=== PATIENT | female | born 1980 | race Caucasian/White ===

== ENCOUNTER 2022-11-29 08:46 | Inpatient (IN) ==
[2022-11-29 10:53] LABS: Pregnancy Test, Serum Negative (Negative)
--- NOTE | 2022-11-29 12:04 | Ultrasound Report ---
ULTRASOUND RIGHT UPPER QUADRANT ABDOMEN CLINICAL HISTORY: Jaundice. COMPARISON STUDY: Abdominal CT dated 01/31/2018. TECHNIQUE: Real-time, grayscale, and color flow sonography of the right upper quadrant of the abdomen was performed. Images are reviewed in the transverse and longitudinal planes. FINDINGS: Liver: The liver is normal in size and echotexture. There is no intrahepatic biliary ductal dilatatio n. The main portal vein is patent. Gallbladder: The gallbladder is mildly distended and contains calcified gallstones. The gallbladder w all appears thickened in the region of the gallbladder neck. There is trace pericholecystic fluid. A sonographic Jean's sign is reportedly absent. The common bile duct measures up to 0.3 cm in diamete r. Pancreas: Visualized portions of the pancreatic head and body are normal in appearance. Right kidney: Survey images of the right kidney demonstrate normal size and echotexture. There is no hydronephrosis. Ascites: None. There are prominent periaortic lymph nodes. IMPRESSION: 1. Cholelithiasis within an abnormal appearing gallbladder. There is also trace pericholecystic fluid . Mild acute cholecystitis is not excluded. Clinical and laboratory correlation will be essential. A nuclear hepatobiliary scan could be considered for further evaluation. 2. There is no intra or extrahepatic biliary ductal dilatation. 3. Prominent periaortic lymph nodes are nonspecific and may be reactive. ACT 112: Negative or not required by law. Electronically signed by: Amor Cali M.D. 11/29/2022 12:03 PM
[2022-11-29 13:28] LABS: Basophils # (auto) 0.07 K/uL (0.00-0.20); Basophils % (auto) 0.7 %; Hematocrit (blood only) 37.7 % (37.0-47.0); Hemoglobin 12.9 g/dl (12.0-16.0); Immature Granulocytes # (auto) 0.04 K/uL (0.01-0.20); Immature Granulocytes % (auto) 0.4 %; Lymphocytes # (auto) 1.28 K/uL (1.20-3.40); Lymphocytes % (auto) 13.5 %; Mean Corpuscular Hemoglobin 28.2 pg (25.0-34.0); Mean Corpuscular Hgb Conc 34.2 g/dL (32.0-36.0); Mean Corpuscular Volume 82.5 fL (80.0-100.0); Mean Platelet Volume 12.8 fL (9.4-12.4); Monocytes # (auto) 0.81 K/uL (0.11-0.59); Monocytes % (auto) 8.6 %; Neutrophils # (auto) 7.26 K/uL (1.40-6.50); Neutrophils % (auto) 76.8 %; Platelet Count 297 K/uL (130-400); RDW Coefficient of Variation 18.3 % (11.5-14.5); RDW Standard Deviation 53.8 fL (36.4-46.3); Red Blood Count 4.57 M/uL (4.20-5.40); White Blood Count 9.46 K/ul (4.8-10.8)
[2022-11-29 14:04] LABS: Albumin Globulin Ratio 1.6 (0.9-2); Albumin Level 3.8 gm/dl (3.4-5.0); BUN Creatinine Ratio 10.4 (10-20); Bilirubin,Total 16.2 mg/dl (0.2-1.0); Calcium 8.8 mg/dl (8.6-10.3); Est GFR (African American) 127.4 ml/min; Globulin 2.4 gm/dl (2.5-4.0); Potassium 3.8 mmol/L (3.5-5.1); Total Protein 6.2 gm/dl (6.0-8.3)
[2022-11-29] MEDS ORDERED: cefOXitin 2,000 MG/60 ML BAG IV STA (14:44)
[2022-11-29] MEDS ORDERED: ONDANSETRON INJ 2 MG/ML 2 ML VIAL IV PRN (15:00)
--- NOTE | 2022-11-29 15:35 | History & Physical Report ---
Date of Service November 29, 2022 Assessment & Plan (1) Acute viral hepatitis: (2) Acute cholecystitis: (3) Opioid abuse: Plan Admit to hospital Vitals as protocol Activity as tolerated Diet npo Unclear of etiology, Patient has underlying hep c and will get a hepatitis profile . she had followup earlier this year and was not offered any treatment because of low hep c titres. No tylenol or any other hepatotoxic medication iv fluids at 100 ml /hr NS. Gi consult requested MRCP ordered held lithium for now ordered an echo to rule out endocarditis although appears unlikely as there is no fevers or wbc counts Surgery consult since US showed concerns of acute cholecystitis zofran prn for nausea continue mefoxin for empiric antibioitic coverage for now History of Present Illness Chief Complaint: generalised weakness , fatigue over the past week with increasing yellow discoloration over the past week Primary Care Provider: Shahzad Melgar DO 42 yr old female with history of substance use disorder , h/o bipolar disorder on lithium presented with worsening weakness and fatigue over the past week.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 Her weakness got worse over the next few days and she noticed increased yellowish discoloration over the past few days . She went to see her doctor today for evaluation and was transferred to the er because of jaundice. Patient had initial workup done and showed increased bilurubin and markedly elevated liver functions. She has history of ivdu and was states that she last used iv drugs about 6 months back She takes subutex but not every day. She is on lithium but unfortunately is not able to take it over the past few days because of nausea and vomiting. She denies using excessive tylenols or any other substances. She also feels feverish although when checked today she was a 36.7 Allergies Allergy/AdvReac Type Severity Reaction Status Date / Time pollen extracts Allergy Unknown "SEASONAL Verified 11/29/22 10:44 ALLERGIES" lactose AdvReac Mild GETS Verified 11/29/22 10:44 DIARRHEA Home Medications Medication Instructions Recorded Confirmed Type buprenorphine HCl 8 mg sublingual 0 mg sublingual TID 01/30/18 11/29/22 History tablet lithium carbonate 300 mg 300 mg PO BID 11/29/22 11/29/22 History tablet,extended release Past Med/Surg History Medical History (Updated 11/29/22 @ 15:26 by Krishan Morelos MD) Abscess of multiple sites BV (bacterial vaginosis) Fever Hordeolum of left eye Surgical History No pertinent past surgical history Social History Smoking Status: Current every day smoker Tobacco Type: Cigarettes Second Hand Exposure: No; Do You Dip or Chew Tobacco: No; Hx Alcohol Use: Yes Alcohol type: beer and wine Hx Substance Use: Yes Last Used Substance Other:: at least six months Preferred Language: Salvadorean Communication Ability: Effective Crop Duster Required: No Beliefs That Will Affect Care: Congregation Current Living Situation: Family and Significant Other Feels Safe at Home: Yes Assistive Devices: None Review of Systems Review of Systems: Reviewed all systems as noted in H/P , rest reviewed as negative Physical Exam Physical Exam: HEENT:No JVD , Normocephalic , atraumatic CV: S1/S2+ , no murmurs Resp: Air entry present bilaterally.no crackles, no wheeze . GI: Abdomen soft non tender . Musculoskeletal: examined for joint tenderness. Skin: Jaundiced+ Psych: Normal affect Neuro: Patient is awake alert not in distress , No focal neuro deficits noted Ext: no edema. Results & Data Results & Data Vital Signs (Past 12 Hours) Vital Signs Temp Pulse Resp BP Pulse Ox O2 Del Method 11/29/22 08:50 36.7 C 91 H 16 120/71 100 Room Air Laboratory Results 11/29/22 11/29/22 11/29/22 13:00 13:00 10:24 WBC 9.46 RBC 4.57 Hgb 12.9 Hct 37.7 MCV 82.5 MCH 28.2 MCHC 34.2 RDW Std Deviation 53.8 H RDW Coeff of Myra 18.3 H Plt Count 297 MPV 12.8 H Immature Gran % (Auto) 0.4 Neut % (Auto) 76.8 Lymph % (Auto) 13.5 Wilkinson % (Auto) 8.6 Eos % (Auto) 0.0 Baso % (Auto) 0.7 Neut # (Auto) 7.26 H Lymph # (Auto) 1.28 Wilkinson # (Auto) 0.81 H Eos # (Auto) 0.00 Baso # (Auto) 0.07 Immature Gran # (Auto) 0.04 Absolute Nucleated RBC Nucleated RBC % (auto) Neutrophils % (Manual) Band Neutrophils % Lymphocytes % (Manual) Prolymphocyte % Reactive Lymphs % (Man) Monocytes % (Manual) Eosinophils % (Manual) Basophils % (Manual) Metamyelocytes % (Man) Myelocytes % (Man) Promyelocytes % (Man) Blast Cells % (Manual) Plasma Cell % (Manual) Other Cells % Nucleated RBC % Neutrophils # (Manual) Band Neutrophils # Total Absolute Neuts Lymphocytes # (Manual) Prolymphocyte # Reactive Lymphs # Total Abs Lymphocytes Monocytes # (Manual) Eosinophils # (Manual) Basophils # (Manual) Metamyelocytes # (Man) Myelocytes # (Manual) Promyelocytes # (Man) Blast Cells # (Man) Plasma Cell # (Manual) Other Cells # Nucleated RBCs # (Man) Hypersegmented Neuts Hyposegmented Neuts Hypogranular Neuts Large Granular Lymphs # Lrg Granular Lymphs Hairy Cells Smudge Cells Toxic Granulation Toxic Vacuolation Dohle Bodies Sahkila Rods Platelet Estimate Hypogranular Platelets Giant Platelets Platelet Satelliting RBC Morphology Polychromasia Hypochromasia Poikilocytosis Basophilic Stippling Anisocytosis Microcytosis Macrocytosis Spherocytes Pappenheimer Bodies Sickle Cells Target Cells Tear Drop Cells Ovalocytes Stomatocytes [place] Bodies Echinocytes Acanthocytes (Spur) Rouleaux RBC Agglutinates Schistocytes Sezary Cell Sodium 138 Potassium 3.8 Chloride 104 Carbon Dioxide 23 Anion Gap 11 BUN 7 Creatinine 0.67 Est Cr Clr Drug Dosing 92.0 Est GFR ( Amer) 127.4 Est GFR (Non-Af Amer) 110.0 BUN/Creatinine Ratio 10.4 Glucose 75 Calcium 8.8 Total Bilirubin 16.2 H AST 1603 H ALT 1476 H Alkaline Phosphatase 499 H Total Protein 6.2 Albumin 3.8 Globulin 2.4 L Albumin/Globulin Ratio 1.6 Lipase 16 HCG, Qual Negative Blood Parasites ID 11/29/22 11/29/22 10:24 10:24 WBC Cancelled RBC Cancelled Hgb Cancelled Hct Cancelled MCV Cancelled MCH Cancelled MCHC Cancelled RDW Std Deviation Cancelled RDW Coeff of Myra Cancelled Plt Count Cancelled MPV Cancelled Immature Gran % (Auto) Cancelled Neut % (Auto) Cancelled Lymph % (Auto) Cancelled Wilkinson % (Auto) Cancelled Eos % (Auto) Cancelled Baso % (Auto) Cancelled Neut # (Auto) Cancelled Lymph # (Auto) Cancelled Wilkinson # (Auto) Cancelled Eos # (Auto) Cancelled Baso # (Auto) Cancelled Immature Gran # (Auto) Cancelled Absolute Nucleated RBC Cancelled Nucleated RBC % (auto) Cancelled Neutrophils % (Manual) Cancelled Band Neutrophils % Cancelled Lymphocytes % (Manual) Cancelled Prolymphocyte % Cancelled Reactive Lymphs % (Man) Cancelled Monocytes % (Manual) Cancelled Eosinophils % (Manual) Cancelled Basophils % (Manual) Cancelled Metamyelocytes % (Man) Cancelled Myelocytes % (Man) Cancelled Promyelocytes % (Man) Cancelled Blast Cells % (Manual) Cancelled Plasma Cell % (Manual) Cancelled Other Cells % Cancelled Nucleated RBC % Cancelled Neutrophils # (Manual) Cancelled Band Neutrophils # Cancelled Total Absolute Neuts Cancelled Lymphocytes # (Manual) Cancelled Prolymphocyte # Cancelled Reactive Lymphs # Cancelled Total Abs Lymphocytes Cancelled Monocytes # (Manual) Cancelled Eosinophils # (Manual) Cancelled Basophils # (Manual) Cancelled Metamyelocytes # (Man) Cancelled Myelocytes # (Manual) Cancelled Promyelocytes # (Man) Cancelled Blast Cells # (Man) Cancelled Plasma Cell # (Manual) Cancelled Other Cells # Cancelled Nucleated RBCs # (Man) Cancelled Hypersegmented Neuts Cancelled Hyposegmented Neuts Cancelled Hypogranular Neuts Cancelled Large Granular Lymphs Cancelled # Lrg Granular Lymphs Cancelled Hairy Cells Cancelled Smudge Cells Cancelled Toxic Granulation Cancelled Toxic Vacuolation Cancelled Dohle Bodies Cancelled Shakila Rods Cancelled Platelet Estimate Cancelled Hypogranular Platelets Cancelled Giant Platelets Cancelled Platelet Satelliting Cancelled RBC Morphology Cancelled Polychromasia Cancelled Hypochromasia Cancelled Poikilocytosis Cancelled Basophilic Stippling Cancelled Anisocytosis Cancelled Microcytosis Cancelled Macrocytosis Cancelled Spherocytes Cancelled Pappenheimer Bodies Cancelled Sickle Cells Cancelled Target Cells Cancelled Tear Drop Cells Cancelled Ovalocytes Cancelled Stomatocytes Cancelled [place] Bodies Cancelled Echinocytes Cancelled Acanthocytes (Spur) Cancelled Rouleaux Cancelled RBC Agglutinates Cancelled Schistocytes Cancelled Sezary Cell Cancelled Sodium Cancelled Potassium Cancelled Chloride Cancelled Carbon Dioxide Cancelled Anion Gap Cancelled BUN Cancelled Creatinine Cancelled Est Cr Clr Drug Dosing Cancelled Est GFR ( Amer) Cancelled Est GFR (Non-Af Amer) Cancelled BUN/Creatinine Ratio Cancelled Glucose Cancelled Calcium Cancelled Total Bilirubin Cancelled AST Cancelled ALT Cancelled Alkaline Phosphatase Cancelled Total Protein Cancelled Albumin Cancelled Globulin Cancelled Albumin/Globulin Ratio Cancelled Lipase Cancelled HCG, Qual Blood Parasites ID Cancelled Diagnostic Findings Home Medications Medication Instructions Recorded Confirmed Last Taken buprenorphine HCl 8 mg sublingual 0 mg sublingual TID 01/30/18 11/29/22 11/24/22 tablet lithium carbonate 300 mg 300 mg PO BID 11/29/22 11/29/22 11/24/22 tablet,extended release Medications Administered Abnormal Labs 11/29/22 11/29/22 13:00 13:00 RDW Std Deviation 53.8 H RDW Coeff of Myra 18.3 H MPV 12.8 H Neut # (Auto) 7.26 H Wilkinson # (Auto) 0.81 H Total Bilirubin 16.2 H AST 1603 H ALT 1476 H Alkaline Phosphatase 499 H Globulin 2.4 L Code Status & VTE Plan VTE Prophylaxis Plan VTE Prophylaxis will be ordered: No
[2022-11-29] MEDS: SODIUM CHLORIDE 0.9% 1,000 ML IV SCH ×2 (16:00→21:38)
--- NOTE | 2022-11-29 17:45 | Emergency Department Note ---
Impression & Plan Jaundice, Acute cholecystitis ED Provider Note INFORMANT: Patient and significant other ED PROVIDER(S): Cornell Morales MD CHIEF COMPLAINT: Jaundice PLAN: Disposition: Admitted Condition: Good Outpatient prescription management: none Referral: None MEDICAL DECISION MAKING: Patient presented to the emergency department because of jaundice. Work-up is initiated. Patient was an extremely difficult IV stick and blood draw. She had multiple times but then declined additional asking to delay until imaging was performed. Imaging was performed and revealed stones in the gallbladder and questionable acute cholecystitis. Patient was reassessed and was informed of the findings and told that she would need to be admitted and worked up for this. She agreed to IV placement at the time. IV and lab was successful at that point. Patient was found to have an unremarkable CBC but does have a significant elevation of her LFTs. Patient is not . Hepatitis panel p ending. I did consult with Dr. [facility] the [facility]. Case was discussed and diagnostics were reviewed. Patient was given a dose of IV Mefoxin. I also consulted with Dr. Goldberg of gastroenterology. She agreed with conservative management, admission and consultation in the hospital. Patient was recommended to have an MRCP. I did notify the internal medicine service of the GI recommendations. Discussed with the director case After review of the information above and other included data, I feel the patient requires admission Triage Nursing notes reviewed and agree them. Vital Signs: reviewed and remarkable for no significant abnormalities Prior /Outside records reviewed: Prior admission records reviewed Differential diagnosis: Etiologies such as biliary pathology, gastroenteritis, food borne illness, infections, appendicitis, diverticulitis, inflammatory bowel disease, GI bleed, as well as others were entertained. Diagnostics, as interpreted by me: ECG: none Cardiac Monitoring: Cardiac monitoring ordered by me: The patient was placed on continuous cardiac monitoring and observed. It revealed a normal sinus rhythm at 78 beats per minute without ectopy or evidence of dysrhythmia. Medical decision rules: none Imaging studies: Ultrasound as above HPI: The patient is a 42year old female who presents to the Emergency Room with complaints of jaundice. This started a week ago and is persisting. Patient went to the PCP clinic and was sent to the emergency department for evaluation. Has history of gallstones and they were concerned. Patient also has a history of hepatitis C. The patient also notes the following associated symptoms, nausea and vomiting that occurred a week ago. Patient also noted abdominal pain at that time. She notes only minimal abdominal discomfort now. The patient has taken no medication for relieving factors. Patient denies any Tylenol use, drug use, mushroom ingestion, or significant alcohol use. Pt denies LOC, headache, fevers, chills, diaphoresis, visual changes, neck pain, chest pain, breathing difficulties, back pain, melena, hematochezia, urinary symptoms, numbness, weakness, lymphadenopathy, rash, or other complaints. PAST MEDICAL HISTORY: See Below, hepatitis C PAST SURGICAL HISTORY: See Below, SOCIAL HISTORY: See Below, smoker HOME MEDICATIONS: See Below ALLERGIES: See Below VITALS: See Below PHYSICAL EXAMINATION: GENERAL: Awake, alert, nontoxic-appearing, in no distress HENT: Normocephalic, atraumatic. Oropharynx unremarkable. EYES: Normal conjunctiva. Sclera moderately-icteric. PERRLA NECK: Inspection normal. Non-tender. Supple. No nuchal rigidity. FROM. No masses. RESPIRATORY: Clear to auscultation. No wheezes. No rales. Normal respiratory effort. CARDIAC: Normal rate. Normal rhythm. No murmurs. No rubs. Extremities warm and well perfused. Pulses equal. No JVD. GI: Soft, non-distended. Mild right upper quadrant tenderness to palpation. No rebound or guarding. No masses. RECTAL: Deferred. MUSCULOSKELETAL: Atraumatic. Chest examination reveals no tenderness. The back is symmetrical on inspection without obvious abnormality. There is no CVA tenderness to palpation. No joint edema. LOWER EXTREMITIES: Calves are equal size bilaterally and non-tender. No edema. No discoloration. NEURO: Normal sensorium. No sensory or motor deficits noted. SKIN: No rash or jaundice noted. Past Med/Surg History Medical History (Updated 11/29/22 @ 17:45 by Cornell Morales MD) Abscess of multiple sites BV (bacterial vaginosis) Fever Hordeolum of left eye Surgical History No pertinent past surgical history Social History Smoking Status: Current every day smoker Tobacco Type: Cigarettes Second Hand Exposure: No; Do You Dip or Chew Tobacco: No; Hx Alcohol Use: Yes Alcohol type: beer and wine Hx Substance Use: Yes Last Used Substance Other:: at least six months Preferred Language: Vietnamese Communication Ability: Effective Child Development Assistant Required: No Beliefs That Will Affect Care: Jain Current Living Situation: Family and Significant Other Feels Safe at Home: Yes Assistive Devices: None Allergies Allergies Allergy/AdvReac Type Severity Reaction Status Date / Time pollen extracts Allergy Unknown "SEASONAL Verified 11/29/22 10:44 ALLERGIES" lactose AdvReac Mild GETS Verified 11/29/22 10:44 DIARRHEA Home Meds Home Medications Medication Instructions Recorded Confirmed buprenorphine HCl 8 mg sublingual 0 mg sublingual TID 01/30/18 11/29/22 tablet lithium carbonate 300 mg 300 mg PO BID 11/29/22 11/29/22 tablet,extended release Results & Data (ED) Vital Signs Vital Signs - 24 hr 11/29/22 08:50 Temperature 36.7 C Temperature Source Oral Pulse Rate 91 H Respiratory Rate 16 Respiratory Effort / Characteristics Non-Labored Spontaneous Respiratory Depth Normal Respiratory Pattern Regular Blood Pressure 120/71 Blood Pressure Mean 87 Blood Pressure Position Sitting Pulse Oximetry 100 Oxygen Delivery Method Room Air Sepsis Recent Fever Within 48 Hours No Sepsis New/Unexplained Change in Mental Status No Sepsis Action Taken by Nursing No Action Required Laboratory Data 11/29/22 13:00 11/29/22 13:00 Lab Results 11/29/22 11/29/22 11/29/22 Range/Units 10:24 10:24 10:24 WBC Cancelled RBC Cancelled Hgb Cancelled Hct Cancelled MCV Cancelled MCH Cancelled MCHC Cancelled RDW Std Deviation Cancelled RDW Coeff of Myra Cancelled Plt Count Cancelled MPV Cancelled Immature Gran % (Auto) Cancelled Neut % (Auto) Cancelled Lymph % (Auto) Cancelled Cassia % (Auto) Cancelled Eos % (Auto) Cancelled Baso % (Auto) Cancelled Neut # (Auto) Cancelled Lymph # (Auto) Cancelled Cassia # (Auto) Cancelled Eos # (Auto) Cancelled Baso # (Auto) Cancelled Immature Gran # (Auto) Cancelled Absolute Nucleated RBC Cancelled Nucleated RBC % (auto) Cancelled Neutrophils % (Manual) Cancelled Band Neutrophils % Cancelled Lymphocytes % (Manual) Cancelled Prolymphocyte % Cancelled Reactive Lymphs % (Man) Cancelled Monocytes % (Manual) Cancelled Eosinophils % (Manual) Cancelled Basophils % (Manual) Cancelled Metamyelocytes % (Man) Cancelled Myelocytes % (Man) Cancelled Promyelocytes % (Man) Cancelled Blast Cells % (Manual) Cancelled Plasma Cell % (Manual) Cancelled Other Cells % Cancelled Nucleated RBC % Cancelled Neutrophils # (Manual) Cancelled Band Neutrophils # Cancelled Total Absolute Neuts Cancelled Lymphocytes # (Manual) Cancelled Prolymphocyte # Cancelled Reactive Lymphs # Cancelled Total Abs Lymphocytes Cancelled Monocytes # (Manual) Cancelled Eosinophils # (Manual) Cancelled Basophils # (Manual) Cancelled Metamyelocytes # (Man) Cancelled Myelocytes # (Manual) Cancelled Promyelocytes # (Man) Cancelled Blast Cells # (Man) Cancelled Plasma Cell # (Manual) Cancelled Other Cells # Cancelled Nucleated RBCs # (Man) Cancelled Hypersegmented Neuts Cancelled Hyposegmented Neuts Cancelled Hypogranular Neuts Cancelled Large Granular Lymphs Cancelled # Lrg Granular Lymphs Cancelled Hairy Cells Cancelled Smudge Cells Cancelled Toxic Granulation Cancelled Toxic Vacuolation Cancelled Dohle Bodies Cancelled Shakila Rods Cancelled Platelet Estimate Cancelled Hypogranular Platelets Cancelled Giant Platelets Cancelled Platelet Satelliting Cancelled RBC Morphology Cancelled Polychromasia Cancelled Hypochromasia Cancelled Poikilocytosis Cancelled Basophilic Stippling Cancelled Anisocytosis Cancelled Microcytosis Cancelled Macrocytosis Cancelled Spherocytes Cancelled Pappenheimer Bodies Cancelled Sickle Cells Cancelled Target Cells Cancelled Tear Drop Cells Cancelled Ovalocytes Cancelled Stomatocytes Cancelled Cruz-Laurel Bodies Cancelled Echinocytes Cancelled Acanthocytes (Spur) Cancelled Rouleaux Cancelled RBC Agglutinates Cancelled Schistocytes Cancelled Sezary Cell Cancelled Sodium Cancelled Potassium Cancelled Chloride Cancelled Carbon Dioxide Cancelled Anion Gap Cancelled BUN Cancelled Creatinine Cancelled Est Cr Clr Drug Dosing Cancelled Est GFR ( Amer) Cancelled Est GFR (Non-Af Amer) Cancelled BUN/Creatinine Ratio Cancelled Glucose Cancelled Calcium Cancelled Total Bilirubin Cancelled AST Cancelled ALT Cancelled Alkaline Phosphatase Cancelled Total Protein Cancelled Albumin Cancelled Globulin Cancelled Albumin/Globulin Ratio Cancelled Lipase Cancelled HCG, Qual Negative (Negative) Blood Parasites ID Cancelled 11/29/22 11/29/22 Range/Units 13:00 13:00 WBC 9.46 RBC 4.57 Hgb 12.9 Hct 37.7 MCV 82.5 MCH 28.2 MCHC 34.2 RDW Std Deviation 53.8 H RDW Coeff of Myra 18.3 H Plt Count 297 MPV 12.8 H Immature Gran % (Auto) 0.4 Neut % (Auto) 76.8 Lymph % (Auto) 13.5 Cassia % (Auto) 8.6 Eos % (Auto) 0.0 Baso % (Auto) 0.7 Neut # (Auto) 7.26 H Lymph # (Auto) 1.28 Cassia # (Auto) 0.81 H Eos # (Auto) 0.00 Baso # (Auto) 0.07 Immature Gran # (Auto) 0.04 Absolute Nucleated RBC Nucleated RBC % (auto) Neutrophils % (Manual) Band Neutrophils % Lymphocytes % (Manual) Prolymphocyte % Reactive Lymphs % (Man) Monocytes % (Manual) Eosinophils % (Manual) Basophils % (Manual) Metamyelocytes % (Man) Myelocytes % (Man) Promyelocytes % (Man) Blast Cells % (Manual) Plasma Cell % (Manual) Other Cells % Nucleated RBC % Neutrophils # (Manual) Band Neutrophils # Total Absolute Neuts Lymphocytes # (Manual) Prolymphocyte # Reactive Lymphs # Total Abs Lymphocytes Monocytes # (Manual) Eosinophils # (Manual) Basophils # (Manual) Metamyelocytes # (Man) Myelocytes # (Manual) Promyelocytes # (Man) Blast Cells # (Man) Plasma Cell # (Manual) Other Cells # Nucleated RBCs # (Man) Hypersegmented Neuts Hyposegmented Neuts Hypogranular Neuts Large Granular Lymphs # Lrg Granular Lymphs Hairy Cells Smudge Cells Toxic Granulation Toxic Vacuolation Dohle Bodies Shakila Rods Platelet Estimate Hypogranular Platelets Giant Platelets Platelet Satelliting RBC Morphology Polychromasia Hypochromasia Poikilocytosis Basophilic Stippling Anisocytosis Microcytosis Macrocytosis Spherocytes Pappenheimer Bodies Sickle Cells Target Cells Tear Drop Cells Ovalocytes Stomatocytes Cruz-Laurel Bodies Echinocytes Acanthocytes (Spur) Rouleaux RBC Agglutinates Schistocytes Sezary Cell Sodium 138 Potassium 3.8 Chloride 104 Carbon Dioxide 23 Anion Gap 11 BUN 7 Creatinine 0.67 Est Cr Clr Drug Dosing 92.0 Est GFR ( Amer) 127.4 Est GFR (Non-Af Amer) 110.0 BUN/Creatinine Ratio 10.4 Glucose 75 Calcium 8.8 Total Bilirubin 16.2 H AST 1603 H ALT 1476 H Alkaline Phosphatase 499 H Total Protein 6.2 Albumin 3.8 Globulin 2.4 L Albumin/Globulin Ratio 1.6 Lipase 16 HCG, Qual (Negative) Blood Parasites ID Administered Medications Sodium Chloride (Nss 1000ml) 1,000 mls @ 125 mls/hr IV .Q8H [facility] Stop: 12/29/22 14:44 Last Admin: 11/29/22 16:00 Dose: 125 mls/hr Documented By: HARINDER Discontinued Medications Cefoxitin Sodium (Mefoxin) 2,000 mg in 60 mls @ 100 mls/hr IV NOW STA Stop: 11/29/22 15:19 Last Infusion: 11/29/22 16:40 Dose: 0 mls/hr Documented By: Admin: 11/29/22 15:59 Dose: 100 mls/hr Documented By: HARINDER Imaging Data Radiologist's Impression: Gallbladder Ultrasound 11/29/22 10:30 ULTRASOUND RIGHT UPPER QUADRANT ABDOMEN CLINICAL HISTORY: Jaundice. COMPARISON STUDY: Abdominal CT dated 01/31/2018. TECHNIQUE: Real-time, grayscale, and color flow sonography of the right upper quadrant of the abdomen was performed. Images are reviewed in the transverse and longitudinal planes. FINDINGS: Liver: The liver is normal in size and echotexture. There is no intrahepatic biliary ductal dilatation. The main portal vein is patent. Gallbladder: The gallbladder is mildly distended and contains calcified gallstones. The gallbladder wall appears thickened in the region of the gallbladder neck. There is trace pericholecystic fluid. A sonographic Jean's sign is reportedly absent. The common bile duct measures up to 0.3 cm in diameter. Pancreas: Visualized portions of the pancreatic head and body are normal in appearance. Right kidney: Survey images of the right kidney demonstrate normal size and ech otexture. There is no hydronephrosis. Ascites: None. There are prominent periaortic lymph nodes. IMPRESSION: 1. Cholelithiasis within an abnormal appearing gallbladder. There is also trace pericholecystic fluid. Mild acute cholecystitis is not excluded. Clinical and laboratory correlation will be essential. A nuclear hepatobiliary scan could be considered for further evaluation. 2. There is no intra or extrahepatic biliary ductal dilatation. 3. Prominent periaortic lymph nodes are nonspecific and may be reactive. ACT 112: Negative or not required by law. Electronically signed by: Amor Cali M.D. 11/29/2022 12:03 PM Discharge Plan Visit Data Chief Complaint: Illness Stated Complaint: MIGHT NEED GAL STONE SURGERY, REF BY DOC ED Provider: Cornell Morales Discharge Problem: Jaundice, Acute cholecystitis
--- NOTE | 2022-11-29 19:18 | Magnetic Resonance Report ---
MR MRCP CLINICAL HISTORY: acute viral hepatitis TECHNIQUE: Multiplanar multisequence MR images of the abdomen were obtained, as per MRCP protocol. . COMPARISON: Comparison is made to right upper quadrant ultrasound 11/29/2022 FINDINGS: Lower chest: No acute abnormality Liver: Unremarkable. No focal lesions are seen. Gallbladder and biliary tree: Gallstone is seen and there is perihepatic fluid. Hydropic appearance o f the gallbladder. No intra- or extrahepatic biliary ductal dilation. Pancreas: Unremarkable, no focal lesions. Spleen: Unremarkable. Adrenals: Unremarkable. Kidneys and ureters: Unremarkable. Bowel: Unremarkable. Lymph nodes Retroperitoneal: Unremarkable. Mesenteric: Unremarkable. Peritoneum: Trace ascites is in the right upper quadrant. Vessels: Unremarkable. Abdominal wall: Unremarkable. Bones: Unremarkable. IMPRESSION: Hydropic gallbladder with stones and pericholecystic fluid but without he wall thickening. Finding s are equivocal for acute cholecystitis. If further evaluation desired, nuclear medicine HIDA scan ca n be performed. ACT 112: Negative or not required by law. Electronically signed by: Elvin Conway M.D. 11/29/2022 7:16 PM
--- NOTE | 2022-11-29 19:59 | Surgery Consultation ---
Date of Consultation November 29, 2022 Assessment & Plan (1) Cholecystitis with cholelithiasis: Assessment: Patient is a 42 years old female who was admitted to the hospital for 1 week history of weakness, fatigue, jaundice. With a past medical history of opiate abuse. Patient denies abdominal pain now. Bilirubin 16, AST 1600, ALT 1400, lipase normal. U/S and MRCP, possible acute cholecystitis, cholelithiasis. Plan: -No emergency surgery indication for this point. -recommend HIDA scan to R/O acute cholecystitis. , - consult GI. -Conservative treatment now. -Repeat the lab tomorrow. -pt agreed with the plan, I answered all questions, -will F/U. History of Present Illness Reason for Consultation: acute cholecystitis, cholelithiasis Requesting Physician: Krishan Morelos MD Attending Physician: Krishan Morelos MD History of Present Illness CC: weakness, fatigue HPI: Patient is 42 years old female with significant past medical history of Opiod abuse. Patient was admitted to the hospital for 1 week a history weakness fatigue, noticed increase yellowish on skin color. Patient feels nausea and vomiting 1 time yesterday without significant abdominal pain. Patient said she felt some epigastric pain and diarrhea some time last week. The pain is not radiating to the back. patient denies any abdominal pain now. No nausea, no vomiting. No fevers. no chills. no diarrhea today. Patient had a ultrasound and MRCP diagnosis possible acute cholecystitis with a gallstone. labs showed Bilirubin 16, AST 1600, ALT 1400. lipase normal. Allergies Allergy/AdvReac Type Severity Reaction Status Date / Time pollen extracts Allergy Unknown "SEASONAL Verified 11/29/22 10:44 ALLERGIES" lactose AdvReac Mild GETS Verified 11/29/22 10:44 DIARRHEA Home Medications Medication Instructions Recorded Confirmed Type buprenorphine HCl 8 mg sublingual 0 mg sublingual TID 01/30/18 11/29/22 History tablet lithium carbonate 300 mg 300 mg PO BID 11/29/22 11/29/22 History tablet,extended release Patient History Medical History (Updated 11/29/22 @ 20:03 by Marvel Covarrubias MD) Abscess of multiple sites BV (bacterial vaginosis) Fever Hordeolum of left eye Surgical History No pertinent past surgical history Social History Smoking Status: Current every day smoker Tobacco Type: Cigarettes Cigarettes Per Day: few cigarettes per day; Second Hand Exposure: No; Do You Dip or Chew Tobacco: No; Hx Alcohol Use: No Hx Substance Use: Yes Last Used Substance Other:: meth- 1 year ago, heroin- 6 years ago Preferred Language: Bangladeshi Communication Ability: Effective Research/Program Director Required: No Beliefs That Will Affect Care: None Current Living Situation: Significant Other Current Living Situation Comment: 2 roomates Feels Safe at Home: Yes Safety Concerns: Feels Safe At This Time Assistive Devices: None Review of Systems Constitutional: as per Subjective / HPI jundice Eyes: jundice Respiratory: as per Subjective / HPI Cardiovascular: as per Subjective / HPI Gastrointestinal: as per Subjective / HPI Musculoskeletal: as per Subjective / HPI Neurologic: as per Subjective / HPI Psychiatric: as per Subjective / HPI (opioid abuse) Endocrine: as per Subjective / HPI Hematologic / Lymphatic: as per Subjective / HPI Physical Exam Constitutional: WD/WN, vitals as above no distress Eyes: jaundice Neck: trachea midline, no thyromegaly Respiratory: normal respiratory effort, lungs clear to auscultation Cardiovascular: RRR, no murmur, no edema Gastrointestinal (Abdomen): Soft, no tenderness, no distention, bowel sounds positive. Musculoskeletal: no cyanosis or clubbing, extremities motor strength 5/5 Skin: yellowish color Neurologic: patellar DTR's 2+ bilat, sensation intact Psychiatric: A+Ox3, euthymic affect Results & Data Vital Signs (Past 12 Hours) Vital Signs Temp Pulse Pulse Resp BP BP Pulse Ox 11/29/22 18:30 37.4 C 76 16 130/73 100 11/29/22 18:28 11/29/22 18:26 70 18 96 11/29/22 16:38 78 18 109/63 98 11/29/22 08:50 36.7 C 91 H 16 120/71 100 O2 Del Method 11/29/22 18:30 Room Air 11/29/22 18:28 Room Air 11/29/22 18:26 Room Air 11/29/22 16:38 Room Air 11/29/22 08:50 Room Air Laboratory Results Abnormal lab results 11/29/22 11/29/22 Range/Units 13:00 13:00 RDW Std Deviation 53.8 H (36.4-46.3) fL RDW Coeff of Myra 18.3 H (11.5-14.5) % MPV 12.8 H (9.4-12.4) fL Neut # (Auto) 7.26 H (1.40-6.50) K/uL [place] # (Auto) 0.81 H (0.11-0.59) K/uL Total Bilirubin 16.2 H (0.2-1.0) mg/dl AST 1603 H (13-39) U/L ALT 1476 H (7-52) U/L Alkaline Phosphatase 499 H (34-104) U/L Globulin 2.4 L (2.5-4.0) gm/dl Lab Results 11/29/22 11/29/22 11/29/22 Range/Units 10:24 10:24 10:24 WBC Cancelled RBC Cancelled Hgb Cancelled Hct Cancelled MCV Cancelled MCH Cancelled MCHC Cancelled RDW Std Deviation Cancelled RDW Coeff of Myra Cancelled Plt Count Cancelled MPV Cancelled Immature Gran % (Auto) Cancelled Neut % (Auto) Cancelled Lymph % (Auto) Cancelled [place] % (Auto) Cancelled Eos % (Auto) Cancelled Baso % (Auto) Cancelled Neut # (Auto) Cancelled Lymph # (Auto) Cancelled [place] # (Auto) Cancelled Eos # (Auto) Cancelled Baso # (Auto) Cancelled Immature Gran # (Auto) Cancelled Absolute Nucleated RBC Cancelled Nucleated RBC % (auto) Cancelled Neutrophils % (Manual) Cancelled Band Neutrophils % Cancelled Lymphocytes % (Manual) Cancelled Prolymphocyte % Cancelled Reactive Lymphs % (Man) Cancelled Monocytes % (Manual) Cancelled Eosinophils % (Manual) Cancelled Basophils % (Manual) Cancelled Metamyelocytes % (Man) Cancelled Myelocytes % (Man) Cancelled Promyelocytes % (Man) Cancelled Blast Cells % (Manual) Cancelled Plasma Cell % (Manual) Cancelled Other Cells % Cancelled Nucleated RBC % Cancelled Neutrophils # (Manual) Cancelled Band Neutrophils # Cancelled Total Absolute Neuts Cancelled Lymphocytes # (Manual) Cancelled Prolymphocyte # Cancelled Reactive Lymphs # Cancelled Total Abs Lymphocytes Cancelled Monocytes # (Manual) Cancelled Eosinophils # (Manual) Cancelled Basophils # (Manual) Cancelled Metamyelocytes # (Man) Cancelled Myelocytes # (Manual) Cancelled Promyelocytes # (Man) Cancelled Blast Cells # (Man) Cancelled Plasma Cell # (Manual) Cancelled Other Cells # Cancelled Nucleated RBCs # (Man) Cancelled Hypersegmented Neuts Cancelled Hyposegmented Neuts Cancelled Hypogranular Neuts Cancelled Large Granular Lymphs Cancelled # Lrg Granular Lymphs Cancelled Hairy Cells Cancelled Smudge Cells Cancelled Toxic Granulation Cancelled Toxic Vacuolation Cancelled Dohle Bodies Cancelled Shakila Rods Cancelled Platelet Estimate Cancelled Hypogranular Platelets Cancelled Giant Platelets Cancelled Platelet Satelliting Cancelled RBC Morphology Cancelled Polychromasia Cancelled Hypochromasia Cancelled Poikilocytosis Cancelled Basophilic Stippling Cancelled Anisocytosis Cancelled Microcytosis Cancelled Macrocytosis Cancelled Spherocytes Cancelled Pappenheimer Bodies Cancelled Sickle Cells Cancelled Target Cells Cancelled Tear Drop Cells Cancelled Ovalocytes Cancelled Stomatocytes Cancelled [place] Bodies Cancelled Echinocytes Cancelled Acanthocytes (Spur) Cancelled Rouleaux Cancelled RBC Agglutinates Cancelled Schistocytes Cancelled [place] Cell Cancelled Sodium Cancelled Potassium Cancelled Chloride Cancelled Carbon Dioxide Cancelled Anion Gap Cancelled BUN Cancelled Creatinine Cancelled Est Cr Clr Drug Dosing Cancelled Est GFR ( Amer) Cancelled Est GFR (Non-Af Amer) Cancelled BUN/Creatinine Ratio Cancelled Glucose Cancelled Calcium Cancelled Total Bilirubin Cancelled AST Cancelled ALT Cancelled Alkaline Phosphatase Cancelled Total Protein Cancelled Albumin Cancelled Globulin Cancelled Albumin/Globulin Ratio Cancelled Lipase Cancelled HCG, Qual Negative (Negative) Blood Parasites ID Cancelled 11/29/22 11/29/22 Range/Units 13:00 13:00 WBC 9.46 RBC 4.57 Hgb 12.9 Hct 37.7 MCV 82.5 MCH 28.2 MCHC 34.2 RDW Std Deviation 53.8 H RDW Coeff of Myra 18.3 H Plt Count 297 MPV 12.8 H Immature Gran % (Auto) 0.4 Neut % (Auto) 76.8 Lymph % (Auto) 13.5 [place] % (Auto) 8.6 Eos % (Auto) 0.0 Baso % (Auto) 0.7 Neut # (Auto) 7.26 H Lymph # (Auto) 1.28 [place] # (Auto) 0.81 H Eos # (Auto) 0.00 Baso # (Auto) 0.07 Immature Gran # (Auto) 0.04 Absolute Nucleated RBC Nucleated RBC % (auto) Neutrophils % (Manual) Band Neutrophils % Lymphocytes % (Manual) Prolymphocyte % Reactive Lymphs % (Man) Monocytes % (Manual) Eosinophils % (Manual) Basophils % (Manual) Metamyelocytes % (Man) Myelocytes % (Man) Promyelocytes % (Man) Blast Cells % (Manual) Plasma Cell % (Manual) Other Cells % Nucleated RBC % Neutrophils # (Manual) Band Neutrophils # Total Absolute Neuts Lymphocytes # (Manual) Prolymphocyte # Reactive Lymphs # Total Abs Lymphocytes Monocytes # (Manual) Eosinophils # (Manual) Basophils # (Manual) Metamyelocytes # (Man) Myelocytes # (Manual) Promyelocytes # (Man) Blast Cells # (Man) Plasma Cell # (Manual) Other Cells # Nucleated RBCs # (Man) Hypersegmented Neuts Hyposegmented Neuts Hypogranular Neuts Large Granular Lymphs # Lrg Granular Lymphs Hairy Cells Smudge Cells Toxic Granulation Toxic Vacuolation Dohle Bodies Shakila Rods Platelet Estimate Hypogranular Platelets Giant Platelets Platelet Satelliting RBC Morphology Polychromasia Hypochromasia Poikilocytosis Basophilic Stippling Anisocytosis Microcytosis Macrocytosis Spherocytes Pappenheimer Bodies Sickle Cells Target Cells Tear Drop Cells Ovalocytes Stomatocytes [place] Bodies Echinocytes Acanthocytes (Spur) Rouleaux RBC Agglutinates Schistocytes [place] Cell Sodium 138 Potassium 3.8 Chloride 104 Carbon Dioxide 23 Anion Gap 11 BUN 7 Creatinine 0.67 Est Cr Clr Drug Dosing 92.0 Est GFR ( Amer) 127.4 Est GFR (Non-Af Amer) 110.0 BUN/Creatinine Ratio 10.4 Glucose 75 Calcium 8.8 Total Bilirubin 16.2 H AST 1603 H ALT 1476 H Alkaline Phosphatase 499 H Total Protein 6.2 Albumin 3.8 Globulin 2.4 L Albumin/Globulin Ratio 1.6 Lipase 16 HCG, Qual (Negative) Blood Parasites ID Diagnostic Findings MR MRCP CLINICAL HISTORY: acute viral hepatitis TECHNIQUE: Multiplanar multisequence MR images of the abdomen were obtained, as per MRCP protocol. . COMPARISON: Comparison is made to right upper quadrant ultrasound 11/29/2022 FINDINGS: Lower chest: No acute abnormality Liver: Unremarkable. No focal lesions are seen. Gallbladder and biliary tree: Gallstone is seen and there is perihepatic fluid. Hydropic appearance of the gallbladder. No intra- or extrahepatic biliary ductal dilation. Pancreas: Unremarkable, no focal lesions. Spleen: Unremarkable. Adrenals: Unremarkable. Kidneys and ureters: Unremarkable. Bowel: Unremarkable. Lymph nodes Retroperitoneal: Unremarkable. Mesenteric: Unremarkable. Peritoneum: Trace ascites is in the right upper quadrant. Vessels: Unremarkable. Abdominal wall: Unremarkable. Bones: Unremarkable. IMPRESSION: Hydropic gallbladder with stones and pericholecystic fluid but without he wall thickening. Findings are equivocal for acute cholecystitis. If further evaluation desired, nuclear medicine HIDA scan can be performed. ULTRASOUND RIGHT UPPER QUADRANT ABDOMEN CLINICAL HISTORY: Jaundice. COMPARISON STUDY: Abdominal CT dated 01/31/2018. TECHNIQUE: Real-time, grayscale, and color flow sonography of the right upper quadrant of the abdomen was performed. Images are reviewed in the transverse and longitudinal planes. FINDINGS: Liver: The liver is normal in size and echotexture. There is no intrahepatic biliary ductal dilatation. The main portal vein is patent. Gallbladder: The gallbladder is mildly distended and contains calcified gallstones. The gallbladder wall appears thickened in the region of the gallbladder neck. There is trace pericholecystic fluid. A sonographic Jean's sign is reportedly absent. The common bile duct measures up to 0.3 cm in diameter. Pancreas: Visualized portions of the pancreatic head and body are normal in appearance. Right kidney: Survey images of the right kidney demonstrate normal size and echotexture. There is no hydronephrosis. Ascites: None. There are prominent periaortic lymph nodes. IMPRESSION: 1. Cholelithiasis within an abnormal appearing gallbladder. There is also trace pericholecystic fluid. Mild acute cholecystitis is not excluded. Clinical and laboratory correlation will be essential. A nuclear hepatobiliary scan could be considered for further evaluation. 2. There is no intra or extrahepatic biliary ductal dilatation. 3. Prominent periaortic lymph nodes are nonspecific and may be reactive.
[2022-11-29] MEDS: cefOXitin 2,000 MG in DEXTROSE 5% 50 ML IV SCH (22:22)
[2022-11-30 02:53] LABS: Appearance Urine Cloudy (Clear); Blood Urine 3+ (Negative); Color Urine Dark Yellow; Epithelial Cell Urine Auto >30 /lpf (0-5); Glucose Urine UA Negative (Negative); Ketones Urine Trace (Negative); Leukocyte Esterase Urine 1+ (Negative); Nitrite Urine Positive (Negative); Protein Urine Trace (Negative); Specific Gravity Urine 1.023 (1.000-1.030); Urobilinogen Urine Negative (Negative); pH Urine 6.5 (4.5-7.5)
[2022-11-30 02:59] LABS: Bilirubin Urine 3+ (Negative)
[2022-11-30 03:16] LABS: Bacteria Urine Automated 2+ (Negative); Mucus Urine Present (None Prsent)
[2022-11-30] MEDS: cefOXitin 2,000 MG in DEXTROSE 5% 50 ML IV SCH ×2 (04:10→10:53)
[2022-11-30] MEDS: SODIUM CHLORIDE 0.9% 1,000 ML IV SCH ×2 (07:26→15:14)
[2022-11-30] MEDS ORDERED: SINCALIDE IV SCH (08:30)
[2022-11-30] MEDS ORDERED: SODIUM CHLORIDE 0.9% IV SCH (08:30)
[2022-11-30 11:17] LABS: Basophils # (auto) 0.06 K/uL (0.00-0.20); Eosinophils # (auto) 0.02 K/uL (0.00-0.50); Eosinophils % (auto) 0.3 %; Hematocrit (blood only) 37.1 % (37.0-47.0); Hemoglobin 12.3 g/dl (12.0-16.0); Immature Granulocytes # (auto) 0.01 K/uL (0.01-0.20); Immature Granulocytes % (auto) 0.2 %; Lymphocytes % (auto) 23.6 %; Mean Corpuscular Hemoglobin 28.1 pg (25.0-34.0); Mean Corpuscular Hgb Conc 33.2 g/dL (32.0-36.0); Mean Corpuscular Volume 84.9 fL (80.0-100.0); Mean Platelet Volume 12.9 fL (9.4-12.4); Monocytes # (auto) 0.88 K/uL (0.11-0.59); Monocytes % (auto) 14.9 %; Neutrophils # (auto) 3.55 K/uL (1.40-6.50); Platelet Count 277 K/uL (130-400); RDW Coefficient of Variation 18.5 % (11.5-14.5); RDW Standard Deviation 56.3 fL (36.4-46.3); Red Blood Count 4.37 M/uL (4.20-5.40); White Blood Count 5.92 K/ul (4.8-10.8)
--- NOTE | 2022-11-30 11:20 | Surgery Progress Note ---
Date of Service November 30, 2022 Assessment & Plan (1) Acute viral hepatitis: (2) Jaundice: (3) Cholecystitis with cholelithiasis: Plan: 42 year old female who was admitted to the hospital for 1 week history of weakness, fatigue, jaundice. With a past medical history of opiate abuse. Bilirubin 16, AST 1600, ALT 1400, lipase normal. U/S and MRCP, possible acute cholecystitis, cholelithiasis. Plan: await GI consutlation await HIDA scan results -Conservative treatment now. -Repeat labs Dr. Covarrubias has seen patient and agrees with above. Admission and Anticipated Discharge Date Admission Date: November 29, 2022 Subjective significant other present at bedside, states they are not happy today, do not understand why she needs repeat labs today as the IV antibiotics were just started yesterday patient seems upset in bed, states she is only letting them try twice to get blood HIDA scan is still pending no abdominal pain Physical Exam Constitutional: WD/WN, vitals as above comfortable; no acute distress, not ill appearing and not combative Respiratory: normal respiratory effort; no respiratory distress Gastrointestinal (Abdomen): Abdominal exam not completed as patient currently in process of a blood draw for am labs Skin: no rashes, warm and dry + jaundice Psychiatric: Orientation: alert and oriented x 3 Affect: + angry affect Results & Data Vital Signs (Past 12 Hours) Vital Signs Temp Pulse Resp BP Pulse Ox O2 Del Method 11/30/22 07:34 36.8 C 63 18 100/60 97 Room Air 11/30/22 07:27 36.7 C 62 16 107/69 98 Room Air Laboratory Results 11/30/22 11/30/22 11/30/22 Range/Units 10:53 10:53 10:53 WBC 5.92 (4.8-10.8) K/ul RBC 4.37 (4.20-5.40) M/uL Hgb 12.3 (12.0-16.0) g/dl Hct 37.1 (37.0-47.0) % MCV 84.9 (80.0-100.0) fL MCH 28.1 (25.0-34.0) pg MCHC 33.2 (32.0-36.0) g/dL RDW Std Deviation 56.3 H (36.4-46.3) fL RDW Coeff of Myra 18.5 H (11.5-14.5) % Plt Count 277 (130-400) K/uL MPV 12.9 H (9.4-12.4) fL Immature Gran % (Auto) 0.2 % Neut % (Auto) 60.0 % Lymph % (Auto) 23.6 % [place] % (Auto) 14.9 % Eos % (Auto) 0.3 % Baso % (Auto) 1.0 % Neut # (Auto) 3.55 (1.40-6.50) K/uL Lymph # (Auto) 1.40 (1.20-3.40) K/uL [place] # (Auto) 0.88 H (0.11-0.59) K/uL Eos # (Auto) 0.02 (0.00-0.50) K/uL Baso # (Auto) 0.06 (0.00-0.20) K/uL Immature Gran # (Auto) 0.01 (0.01-0.20) K/uL PT Pending INR Pending Sodium Pending (136-145) mmol/L Potassium Pending (3.5-5.1) mmol/L Chloride Pending (98-107) mmol/L Carbon Dioxide Pending (21-32) mmol/L Anion Gap Pending (3-11) BUN Pending (6-23) mg/dl Creatinine Pending (0.6-1.2) mg/dl Est Cr Clr Drug Dosing Pending ml/min Est GFR ( Amer) Pending ml/min Est GFR (Non-Af Amer) Pending ml/min BUN/Creatinine Ratio Pending (10-20) Glucose Pending (70-99(Fasting)) mg/dl Calcium Pending (8.6-10.3) mg/dl Total Bilirubin Pending (0.2-1.0) mg/dl Direct Bilirubin Pending AST Pending (13-39) U/L ALT Pending (7-52) U/L Alkaline Phosphatase Pending (34-104) U/L Total Protein Pending (6.0-8.3) gm/dl Albumin Pending (3.4-5.0) gm/dl Globulin (2.5-4.0) gm/dl Albumin/Globulin Ratio (0.9-2) Lipase (11-82) U/L Urine Color Urine Appearance (Clear) Urine pH (4.5-7.5) Ur Specific [place] (1.000-1.030) Urine Protein (Negative) Urine Glucose (UA) (Negative) Urine Ketones (Negative) Urine Blood (Negative) Urine Nitrite (Negative) Urine Bilirubin (Negative) Urine Urobilinogen (Negative) Ur Leukocyte Esterase (Negative) Urine WBC (Auto) (0-5) /hpf Urine RBC (Auto) (0-4) /hpf U Hyaline Cast (Auto) (0-5) /lpf U Epithel Cells (Auto) (0-5) /lpf Urine Bacteria (Auto) (Negative) Urine Crystals Urine Mucus (None Prsent) Urine Yeast Hepatitis A IgM Ab Hep Bs Antigen Hep Bs Ag Confirmation Hep B Core IgM Ab Hepatitis C Ab (EIA) 11/30/22 11/29/22 11/29/22 Range/Units 02:36 13:00 13:00 WBC 9.46 (4.8-10.8) K/ul RBC 4.57 (4.20-5.40) M/uL Hgb 12.9 (12.0-16.0) g/dl Hct 37.7 (37.0-47.0) % MCV 82.5 (80.0-100.0) fL MCH 28.2 (25.0-34.0) pg MCHC 34.2 (32.0-36.0) g/dL RDW Std Deviation 53.8 H (36.4-46.3) fL RDW Coeff of Myra 18.3 H (11.5-14.5) % Plt Count 297 (130-400) K/uL MPV 12.8 H (9.4-12.4) fL Immature Gran % (Auto) 0.4 % Neut % (Auto) 76.8 % Lymph % (Auto) 13.5 % [place] % (Auto) 8.6 % Eos % (Auto) 0.0 % Baso % (Auto) 0.7 % Neut # (Auto) 7.26 H (1.40-6.50) K/uL Lymph # (Auto) 1.28 (1.20-3.40) K/uL [place] # (Auto) 0.81 H (0.11-0.59) K/uL Eos # (Auto) 0.00 (0.00-0.50) K/uL Baso # (Auto) 0.07 (0.00-0.20) K/uL Immature Gran # (Auto) 0.04 (0.01-0.20) K/uL PT INR Sodium 138 (136-145) mmol/L Potassium 3.8 (3.5-5.1) mmol/L Chloride 104 (98-107) mmol/L Carbon Dioxide 23 (21-32) mmol/L Anion Gap 11 (3-11) BUN 7 (6-23) mg/dl Creatinine 0.67 (0.6-1.2) mg/dl Est Cr Clr Drug Dosing 92.0 ml/min Est GFR ( Amer) 127.4 ml/min Est GFR (Non-Af Amer) 110.0 ml/min BUN/Creatinine Ratio 10.4 (10-20) Glucose 75 (70-99(Fasting)) mg/dl Calcium 8.8 (8.6-10.3) mg/dl Total Bilirubin 16.2 H (0.2-1.0) mg/dl Direct Bilirubin AST 1603 H (13-39) U/L ALT 1476 H (7-52) U/L Alkaline Phosphatase 499 H (34-104) U/L Total Protein 6.2 (6.0-8.3) gm/dl Albumin 3.8 (3.4-5.0) gm/dl Globulin 2.4 L (2.5-4.0) gm/dl Albumin/Globulin Ratio 1.6 (0.9-2) Lipase 16 (11-82) U/L Urine Color Dark Yellow Urine Appearance Cloudy A (Clear) Urine pH 6.5 (4.5-7.5) Ur Specific [place] 1.023 (1.000-1.030) Urine Protein Trace H (Negative) Urine Glucose (UA) Negative (Negative) Urine Ketones Trace H (Negative) Urine Blood 3+ H (Negative) Urine Nitrite Positive A (Negative) Urine Bilirubin 3+ H (Negative) Urine Urobilinogen Negative (Negative) Ur Leukocyte Esterase 1+ H (Negative) Urine WBC (Auto) 1-5 (0-5) /hpf Urine RBC (Auto) 10-30 H (0-4) /hpf U Hyaline Cast (Auto) 1-5 (0-5) /lpf U Epithel Cells (Auto) >30 H (0-5) /lpf Urine Bacteria (Auto) 2+ H (Negative) Urine Crystals Not Reportable Urine Mucus Present A (None Prsent) Urine Yeast Not Reportable Hepatitis A IgM Ab Hep Bs Antigen Hep Bs Ag Confirmation Hep B Core IgM Ab Hepatitis C Ab (EIA) 11/29/22 Range/Units 13:00 WBC (4.8-10.8) K/ul RBC (4.20-5.40) M/uL Hgb (12.0-16.0) g/dl Hct (37.0-47.0) % MCV (80.0-100.0) fL MCH (25.0-34.0) pg MCHC (32.0-36.0) g/dL RDW Std Deviation (36.4-46.3) fL RDW Coeff of Myra (11.5-14.5) % Plt Count (130-400) K/uL MPV (9.4-12.4) fL Immature Gran % (Auto) % Neut % (Auto) % Lymph % (Auto) % [place] % (Auto) % Eos % (Auto) % Baso % (Auto) % Neut # (Auto) (1.40-6.50) K/uL Lymph # (Auto) (1.20-3.40) K/uL [place] # (Auto) (0.11-0.59) K/uL Eos # (Auto) (0.00-0.50) K/uL Baso # (Auto) (0.00-0.20) K/uL Immature Gran # (Auto) (0.01-0.20) K/uL PT INR Sodium (136-145) mmol/L Potassium (3.5-5.1) mmol/L Chloride (98-107) mmol/L Carbon Dioxide (21-32) mmol/L Anion Gap (3-11) BUN (6-23) mg/dl Creatinine (0.6-1.2) mg/dl Est Cr Clr Drug Dosing ml/min Est GFR ( Amer) ml/min Est GFR (Non-Af Amer) ml/min BUN/Creatinine Ratio (10-20) Glucose (70-99(Fasting)) mg/dl Calcium (8.6-10.3) mg/dl Total Bilirubin (0.2-1.0) mg/dl Direct Bilirubin AST (13-39) U/L ALT (7-52) U/L Alkaline Phosphatase (34-104) U/L Total Protein (6.0-8.3) gm/dl Albumin (3.4-5.0) gm/dl Globulin (2.5-4.0) gm/dl Albumin/Globulin Ratio (0.9-2) Lipase (11-82) U/L Urine Color Urine Appearance (Clear) Urine pH (4.5-7.5) Ur Specific [place] (1.000-1.030) Urine Protein (Negative) Urine Glucose (UA) (Negative) Urine Ketones (Negative) Urine Blood (Negative) Urine Nitrite (Negative) Urine Bilirubin (Negative) Urine Urobilinogen (Negative) Ur Leukocyte Esterase (Negative) Urine WBC (Auto) (0-5) /hpf Urine RBC (Auto) (0-4) /hpf U Hyaline Cast (Auto) (0-5) /lpf U Epithel Cells (Auto) (0-5) /lpf Urine Bacteria (Auto) (Negative) Urine Crystals Urine Mucus (None Prsent) Urine Yeast Hepatitis A IgM Ab Pending Hep Bs Antigen Pending Hep Bs Ag Confirmation Pending Hep B Core IgM Ab Pending Hepatitis C Ab (EIA) Pending
[2022-11-30 11:28] LABS: INR 1.3 (0.9-1.1); Prothrombin Time 13.6 Seconds (9.0-12.0)
[2022-11-30] MEDS ORDERED: NICOTINE POLACRILEX 2 MG GUM MT PRN (11:39)
[2022-11-30 12:02] LABS: Albumin Level 3.3 gm/dl (3.4-5.0); Bilirubin,Total 17.2 mg/dl (0.2-1.0); Calcium 8.2 mg/dl (8.6-10.3); Creatinine Clr Calc Pharmacy 73.6 ml/min; Est GFR (African American) 100.8 ml/min; Est GFR (Non-African American) 86.9 ml/min; Potassium 4.2 mmol/L (3.5-5.1); Total Protein 5.6 gm/dl (6.0-8.3)
[2022-11-30 12:10] LABS: Bilirubin Direct 8.7 mg/dl (0-0.2)
[2022-11-30] MEDS: NICOTINE 21 MG/24 HR TDSY TD SCH (12:45)
--- NOTE | 2022-11-30 13:18 | Nuclear Medicine Report ---
NM hepatobiliary EF CLINICAL HISTORY: to R/O acute cholecystitis. TECHNIQUE: Following the intravenous injection of 4.90 mCi of Tc-99m labeled Technetium 99m mebrofen in, multiple images of the upper abdomen were obtained in the anterior projection with uptake measure ments of the gallbladder obtained. Once the gallbladder and small bowel were visualized, the patient was intravenously infused over 30 minutes with 0.02 mcg/kg of Sincalide (CCK), and imaging and uptake s were again obtained. Comparison: Comparison is made to MRCP 11/29/2022 FINDINGS: Uptake is seen in the liver however no definite gallbladder uptake is seen. Excretion into the intestines was also not seen. IMPRESSION: Indeterminate findings with no definite uptake in the gallbladder. Findings are concerning for acute cholecystitis. Reference: Normal gallbladder ejection fraction is greater than 33%. ACT 112: Negative or not required by law. Electronically signed by: Elvin Conway M.D. 11/30/2022 1:17 PM
[2022-11-30] MEDS ORDERED: PIPERACILLIN/TAZOBACTAM 4.5 GM (over 30 mins) IV ONE (13:45)
--- NOTE | 2022-11-30 14:26 | Gastrointestinal Consultation ---
Date of Consultation November 30, 2022 Assessment & Plan (1) Cholecystitis with cholelithiasis: (2) Jaundice: Pt is a 42 yo female w symptoms of jaundice, malaise and fatigue, noted to have elevated LFTs. Etiology could be multifactorial: Hx of HCV infection but not offered treatment in the past due to low viral ct? Hep a/b/c serologies pending. She was exposed to sick resident in [facility] prior to admission so could likely have viral hepatitis. Also just started back on lithium, thus need to consider DILI. Imaging studies showed cholelithiasis w cholecystitis. No signs of biliary dilation or obstruction noted. - IVF support - Trend LFTs - Consider N-Acetylcysteine protocol for possible DILI - F/U on viral and acute hepatitis serologies, urine toxicology - No indication for ERCP given no biliary ductal dilation or obstruction noted (reviewed with Radiology) - Surgery consulted. If cholecystectomy is planned may consider performing intra-op cholangiogram to check for biliary duct patency - Supportive/symptomatic management otherwise - Avoid hepatotoxins, APAP no more than 2g a day if needed Supervising Physician Co-Signing Physician Notes Patient was seen and examined with IZABELLA Eastman on 11/30. Her note reflects our findings and plan. LFTs abnormalities concerning for DILI or viral etiology. Imaging without evidence of biliary obstruction on multiple studies. Work up pending. NAC initiated for liver protection. Check LFTs and INR and CBC with AM labs. History of Present Illness Reason for Consultation: Viral hepatitis Requesting Physician: Dr. Genaro Warren Attending Physician: Dr. Ashia Goldberg History of Present Illness Pt is a 42 yo female w hx of substance abuse, bipolar, ? HCV, who presented w symptoms of jaundice, weakness, fatigue associated w feeling feverish over the last few days. She works at a [employer] and one of the residents have similar symptoms along w diarrhea. She does have upper abd pain but denies bowel habit changes. On eval, she was noted to have elevated LFTs: Tbili 17, AST 1559, AST 1341, Alk phose 402, lipase 16. Gallbladdder us, MRCP, HIDA scan showed abnormal appearing gallbladder concerning for cholecystitis. No intra or extrahepatic biliary ductal dilation. CBD 3mm. No signs of filling defect noted. Denies APAP. No ETOH for years, + tobacco use, no recent marijuana or illicit drugs. + Tattoos. She was on lithium and stopped this for a while and recently restarted the med. Denies other herbal supplements. Allergies Allergy/AdvReac Type Severity Reaction Status Date / Time pollen extracts Allergy Unknown "SEASONAL Verified 11/29/22 10:44 ALLERGIES" lactose AdvReac Mild GETS Verified 11/29/22 10:44 DIARRHEA Home Medications Medication Instructions Recorded Confirmed Type buprenorphine HCl 8 mg sublingual 0 mg sublingual TID 01/30/18 11/29/22 History tablet lithium carbonate 300 mg 300 mg PO BID 11/29/22 11/29/22 History tablet,extended release Patient History Medical History (Updated 12/01/22 @ 00:38 by Javier Carter) Abscess of multiple sites BV (bacterial vaginosis) Fever Hordeolum of left eye Surgical History No pertinent past surgical history Social History Smoking Status: Current every day smoker Tobacco Type: Cigarettes Cigarettes Per Day: few cigarettes per day; Second Hand Exposure: No; Do You Dip or Chew Tobacco: No; Hx Alcohol Use: No Hx Substance Use: Yes Last Used Substance Other:: meth- 1 year ago, heroin- 6 years ago Preferred Language: French Communication Ability: Effective Test Designer Required: No Beliefs That Will Affect Care: None Current Living Situation: Significant Other Current Living Situation Comment: 2 roomates Feels Safe at Home: Yes Safety Concerns: Feels Safe At This Time Assistive Devices: None Review of Systems Review of Systems: All systems reviewed & are unremarkable except as noted in HPI & below Physical Exam Constitutional: WD/WN, vitals as above well groomed, cooperative and comfortable Eyes: PERRLA, icteric sclera ENMT: external ear and nose normal, oropharynx normal Respiratory: normal respiratory effort, lungs clear to auscultation Cardiovascular: RRR, no murmur, no edema Gastrointestinal (Abdomen): TTP RUQ, epigastric, soft, bs hypoactive Skin: no rashes, warm and dry + jaundice Psychiatric: A+Ox3, euthymic affect Lymphatic: no lymphedema Results & Data Vital Signs (Past 12 Hours) Vital Signs Temp Pulse Resp BP Pulse Ox O2 Del Method 11/30/22 07:34 36.8 C 63 18 100/60 97 Room Air 11/30/22 07:27 36.7 C 62 16 107/69 98 Room Air
[2022-11-30] MEDS ORDERED: Nursing to Pharmacy Communication SCH (16:00)
--- NOTE | 2022-11-30 16:16 | Hospitalist Progress Note ---
Date of Service November 30, 2022 Assessment & Plan (1) Acute cholecystitis: (2) Opioid abuse: (3) Elevated liver enzymes: Plan Patient is a 42-year-old female with history of bipolar disorder who presented with worsening weakness and fatigue over the last 1 week. She presented to the ED for concerned with jaundice. Labs reviewed; no leukocytosis. Hemoglobin stable at 12.3. Transaminitis present with AST/ALT/ALP- 1559/1341/402. Total bilirubin is 17.2 with direct bilirubin of 8.7. PT/INR13.6/1.3. Right upper quadrant ultrasound done; cholelithiasis within abnormal appearing gallbladder with trace pericholecystic fluid. MRCP showed hydropic gallbladder with stone and pericholecystic fluid. No intra or extrahepatic biliary duct dilation. HIDA scan no definitive gallbladder uptake is seen. Excretion into the intestine was also not seen. Continue on Zosyn for acute cholecystitis Obtain CBC, CMP and PT/INR daily Avoid hepatotoxic agents. Discussed with Dr. Covarrubias from surgery; he recommended ERCP prior to laparoscopic cholecystectomy or transfer to tertiary care center for ERCP/laparoscopic cholecystectomy. Discussed with Dr. Goldberg from GI; no indication for ERCP. The likely underlying cause for the elevated liver enzymes is hepatitis, likely drug- induced. No need for transfer as per GI. Discussed with triage officer from transfer center [facility]- recommended in-house surgeon to contact the surgeon at [facility] for consultation. Dr. Covarrubias informed. Dr. Covarrubias to call the transfer center. This was discussed with patient. Time spent evaluating patient, direct bedside care, chart review, placing orders, interpretation of diagnostic studies, discussion with consultants, patient, and family members, as well as other required patient management activities is 90 minutes. Please note the above document was generated using voice recognition software. It may contain grammatical, syntax or spelling errors. Any formal questions or concerns about the content, text or information contained within the body of this dictation should be directly addressed to the provider for clarification Admission and Anticipated Discharge Date Admission Date: November 29, 2022 Subjective Patient seen and examined at bedside. She is lying on the bed comfortably. Her significant other is also at bedside. Patient reports mild abdominal pain in right upper quadrant region. No complaint of nausea or vomiting. Review of Systems Review of Systems: All systems reviewed & are unremarkable except as noted in Subjective Physical Exam Physical Exam: Constitutional: Awake, alert orient x3. Eyes: Icteric sclera Respiratory: Bilateral basal breath sound. Cardiovascular: RRR, no murmur, no edema Vessels: no JVD or carotid bruit Chest: normal inspection of chest Abdomen: Soft, nontender. Musculoskeletal: no cyanosis or clubbing, extremities motor strength 5/5 Skin: no rashes, warm and dry normal turgor Neurologic: PERRL, EOMI, accommodation nl, no face palsy, no dysarthria CN's II- XI intact bilaterally and moves all extremities Psychiatric: A+Ox3, euthymic affect Results & Data Results & Data Vital Signs (Past 12 Hours) Vital Signs Temp Pulse Resp BP Pulse Ox O2 Del Method 11/30/22 15:44 36.8 C 63 16 94/60 L 98 Room Air 11/30/22 07:34 36.8 C 63 18 100/60 97 Room Air 11/30/22 07:27 36.7 C 62 16 107/69 98 Room Air Laboratory Results Laboratory Results WBC 5.92 K/ul (4.8-10.8) 11/30/22 10:53 RBC 4.37 M/uL (4.20-5.40) 11/30/22 10:53 Hgb 12.3 g/dl (12.0-16.0) 11/30/22 10:53 Hct 37.1 % (37.0-47.0) 11/30/22 10:53 MCV 84.9 fL (80.0-100.0) 11/30/22 10:53 MCH 28.1 pg (25.0-34.0) 11/30/22 10:53 MCHC 33.2 g/dL (32.0-36.0) 11/30/22 10:53 RDW Std Deviation 56.3 fL (36.4-46.3) H 11/30/22 10:53 RDW Coeff of Myra 18.5 % (11.5-14.5) H 11/30/22 10:53 Plt Count 277 K/uL (130-400) 11/30/22 10:53 MPV 12.9 fL (9.4-12.4) H 11/30/22 10:53 Immature Gran % (Auto) 0.2 % 11/30/22 10:53 Neut % (Auto) 60.0 % 11/30/22 10:53 Lymph % (Auto) 23.6 % 11/30/22 10:53 [place] % (Auto) 14.9 % 11/30/22 10:53 Eos % (Auto) 0.3 % 11/30/22 10:53 Baso % (Auto) 1.0 % 11/30/22 10:53 Neut # (Auto) 3.55 K/uL (1.40-6.50) 11/30/22 10:53 Lymph # (Auto) 1.40 K/uL (1.20-3.40) 11/30/22 10:53 [place] # (Auto) 0.88 K/uL (0.11-0.59) H 11/30/22 10:53 Eos # (Auto) 0.02 K/uL (0.00-0.50) 11/30/22 10:53 Baso # (Auto) 0.06 K/uL (0.00-0.20) 11/30/22 10:53 Immature Gran # (Auto) 0.01 K/uL (0.01-0.20) 11/30/22 10:53 Absolute Nucleated RBC Cancelled 11/29/22 10:24 Nucleated RBC % (auto) Cancelled 11/29/22 10:24 Neutrophils % (Manual) Cancelled 11/29/22 10:24 Band Neutrophils % Cancelled 11/29/22 10:24 Lymphocytes % (Manual) Cancelled 11/29/22 10:24 Prolymphocyte % Cancelled 11/29/22 10:24 Reactive Lymphs % (Man) Cancelled 11/29/22 10:24 Monocytes % (Manual) Cancelled 11/29/22 10:24 Eosinophils % (Manual) Cancelled 11/29/22 10:24 Basophils % (Manual) Cancelled 11/29/22 10:24 Metamyelocytes % (Man) Cancelled 11/29/22 10:24 Myelocytes % (Man) Cancelled 11/29/22 10:24 Promyelocytes % (Man) Cancelled 11/29/22 10:24 Blast Cells % (Manual) Cancelled 11/29/22 10:24 Plasma Cell % (Manual) Cancelled 11/29/22 10:24 Other Cells % Cancelled 11/29/22 10:24 Nucleated RBC % Cancelled 11/29/22 10:24 Neutrophils # (Manual) Cancelled 11/29/22 10:24 Band Neutrophils # Cancelled 11/29/22 10:24 Total Absolute Neuts Cancelled 11/29/22 10:24 Lymphocytes # (Manual) Cancelled 11/29/22 10:24 Prolymphocyte # Cancelled 11/29/22 10:24 Reactive Lymphs # Cancelled 11/29/22 10:24 Total Abs Lymphocytes Cancelled 11/29/22 10:24 Monocytes # (Manual) Cancelled 11/29/22 10:24 Eosinophils # (Manual) Cancelled 11/29/22 10:24 Basophils # (Manual) Cancelled 11/29/22 10:24 Metamyelocytes # (Man) Cancelled 11/29/22 10:24 Myelocytes # (Manual) Cancelled 11/29/22 10:24 Promyelocytes # (Man) Cancelled 11/29/22 10:24 Blast Cells # (Man) Cancelled 11/29/22 10:24 Plasma Cell # (Manual) Cancelled 11/29/22 10:24 Other Cells # Cancelled 11/29/22 10:24 Nucleated RBCs # (Man) Cancelled 11/29/22 10:24 Hypersegmented Neuts Cancelled 11/29/22 10:24 Hyposegmented Neuts Cancelled 11/29/22 10:24 Hypogranular Neuts Cancelled 11/29/22 10:24 Large Granular Lymphs Cancelled 11/29/22 10:24 # Lrg Granular Lymphs Cancelled 11/29/22 10:24 Hairy Cells Cancelled 11/29/22 10:24 Smudge Cells Cancelled 11/29/22 10:24 Toxic Granulation Cancelled 11/29/22 10:24 Toxic Vacuolation Cancelled 11/29/22 10:24 Dohle Bodies Cancelled 11/29/22 10:24 Shakila Rods Cancelled 11/29/22 10:24 Platelet Estimate Cancelled 11/29/22 10:24 Hypogranular Platelets Cancelled 11/29/22 10:24 Giant Platelets Cancelled 11/29/22 10:24 Platelet Satelliting Cancelled 11/29/22 10:24 RBC Morphology Cancelled 11/29/22 10:24 Polychromasia Cancelled 11/29/22 10:24 Hypochromasia Cancelled 11/29/22 10:24 Poikilocytosis Cancelled 11/29/22 10:24 Basophilic Stippling Cancelled 11/29/22 10:24 Anisocytosis Cancelled 11/29/22 10:24 Microcytosis Cancelled 11/29/22 10:24 Macrocytosis Cancelled 11/29/22 10:24 Spherocytes Cancelled 11/29/22 10:24 Pappenheimer Bodies Cancelled 11/29/22 10:24 Sickle Cells Cancelled 11/29/22 10:24 Target Cells Cancelled 11/29/22 10:24 Tear Drop Cells Cancelled 11/29/22 10:24 Ovalocytes Cancelled 11/29/22 10:24 Stomatocytes Cancelled 11/29/22 10:24 [place] Bodies Cancelled 11/29/22 10:24 Echinocytes Cancelled 11/29/22 10:24 Acanthocytes (Spur) Cancelled 11/29/22 10:24 Rouleaux Cancelled 11/29/22 10:24 RBC Agglutinates Cancelled 11/29/22 10:24 Schistocytes Cancelled 11/29/22 10:24 Sezary Cell Cancelled 11/29/22 10:24 PT 13.6 Seconds (9.0-12.0) H 11/30/22 10:53 INR 1.3 (0.9-1.1) H 11/30/22 10:53 Sodium 137 mmol/L (136-145) 11/30/22 10:53 Potassium 4.2 mmol/L (3.5-5.1) 11/30/22 10:53 Chloride 107 mmol/L (98-107) 11/30/22 10:53 Carbon Dioxide 25 mmol/L (21-32) 11/30/22 10:53 Anion Gap 5 (3-11) 11/30/22 10:53 BUN 5 mg/dl (6-23) L 11/30/22 10:53 Creatinine 0.84 mg/dl (0.6-1.2) 11/30/22 10:53 Est Cr Clr Drug Dosing 73.6 ml/min 11/30/22 10:53 Est GFR ( Amer) 100.8 ml/min 11/30/22 10:53 Est GFR (Non-Af Amer) 86.9 ml/min 11/30/22 10:53 BUN/Creatinine Ratio 6.0 (10-20) L 11/30/22 10:53 Glucose 115 mg/dl (70-99(Fasting)) H 11/30/22 10:53 Calcium 8.2 mg/dl (8.6-10.3) L 11/30/22 10:53 Total Bilirubin 17.2 mg/dl (0.2-1.0) H 11/30/22 10:53 Direct Bilirubin 8.7 mg/dl (0-0.2) H 11/30/22 10:53 AST 1559 U/L (13-39) H 11/30/22 10:53 ALT 1341 U/L (7-52) H 11/30/22 10:53 Alkaline Phosphatase 402 U/L (34-104) H 11/30/22 10:53 Total Protein 5.6 gm/dl (6.0-8.3) L 11/30/22 10:53 Albumin 3.3 gm/dl (3.4-5.0) L 11/30/22 10:53 Globulin 2.4 gm/dl (2.5-4.0) L 11/29/22 13:00 Albumin/Globulin Ratio 1.6 (0.9-2) 11/29/22 13:00 Lipase 16 U/L (11-82) 11/29/22 13:00 HCG, Qual Negative (Negative) 11/29/22 10:24 Urine Color Dark Yellow 11/30/22 02:36 Urine Appearance Cloudy (Clear) A 11/30/22 02:36 Urine pH 6.5 (4.5-7.5) 11/30/22 02:36 Ur Specific [place] 1.023 (1.000-1.030) 11/30/22 02:36 Urine Protein Trace (Negative) H 11/30/22 02:36 Urine Glucose (UA) Negative (Negative) 11/30/22 02:36 Urine Ketones Trace (Negative) H 11/30/22 02:36 Urine Blood 3+ (Negative) H 11/30/22 02:36 Urine Nitrite Positive (Negative) A 11/30/22 02:36 Urine Bilirubin 3+ (Negative) H 11/30/22 02:36 Urine Urobilinogen Negative (Negative) 11/30/22 02:36 Ur Leukocyte Esterase 1+ (Negative) H 11/30/22 02:36 Urine WBC (Auto) 1-5 /hpf (0-5) 11/30/22 02:36 Urine RBC (Auto) 10-30 /hpf (0-4) H 11/30/22 02:36 U Hyaline Cast (Auto) 1-5 /lpf (0-5) 11/30/22 02:36 U Epithel Cells (Auto) >30 /lpf (0-5) H 11/30/22 02:36 Urine Bacteria (Auto) 2+ (Negative) H 11/30/22 02:36 Urine Crystals Not Reportable 11/30/22 02:36 Urine Mucus Present (None Prsent) A 11/30/22 02:36 Urine Yeast Not Reportable 11/30/22 02:36 Monoscreen Negative (Negative) 11/30/22 12:34 Blood Parasites ID Cancelled 11/29/22 10:24 Impressions Gallbladder Ultrasound 11/29/22 10:30 ULTRASOUND RIGHT UPPER QUADRANT ABDOMEN CLINICAL HISTORY: Jaundice. COMPARISON STUDY: Abdominal CT dated 01/31/2018. TECHNIQUE: Real-time, grayscale, and color flow sonography of the right upper quadrant of the abdomen was performed. Images are reviewed in the transverse and longitudinal planes. FINDINGS: Liver: The liver is normal in size and echotexture. There is no intrahepatic biliary ductal dilatation. The main portal vein is patent. Gallbladder: The gallbladder is mildly distended and contains calcified gallstones. The gallbladder wall appears thickened in the region of the gallbladder neck. There is trace pericholecystic fluid. A sonographic Jean's sign is reportedly absent. The common bile duct measures up to 0.3 cm in diam eter. Pancreas: Visualized portions of the pancreatic head and body are normal in appearance. Right kidney: Survey images of the right kidney demonstrate normal size and echotexture. There is no hydronephrosis. Ascites: None. There are prominent periaortic lymph nodes. IMPRESSION: 1. Cholelithiasis within an abnormal appearing gallbladder. There is also trace pericholecystic fluid. Mild acute cholecystitis is not excluded. Clinical and laboratory correlation will be essential. A nuclear hepatobiliary scan could be considered for further evaluation. 2. There is no intra or extrahepatic biliary ductal dilatation. 3. Prominent periaortic lymph nodes are nonspecific and may be reactive. ACT 112: Negative or not required by law. Electronically signed by: Amor Cali M.D. 11/29/2022 12:03 PM Cholangiopancreatography MRI 11/29/22 14:53 MR MRCP CLINICAL HISTORY: acute viral hepatitis TECHNIQUE: Multiplanar multisequence MR images of the abdomen were obtained, as per MRCP protocol. . COMPARISON: Comparison is made to right upper quadrant ultrasound 11/29/2022 FINDINGS: Lower chest: No acute abnormality Liver: Unremarkable. No focal lesions are seen. Gallbladder and biliary tree: Gallstone is seen and there is perihepatic fluid. Hydropic appearance of the gallbladder. No intra- or extrahepatic biliary ductal dilation. Pancreas: Unremarkable, no focal lesions. Spleen: Unremarkable. Adrenals: Unremarkable. Kidneys and ureters: Unremarkable. Bowel: Unremarkable. Lymph nodes Retroperitoneal: Unremarkable. Mesenteric: Unremarkable. Peritoneum: Trace ascites is in the right upper quadrant. Vessels: Unremarkable. Abdominal wall: Unremarkable. Bones: Unremarkable. IMPRESSION: Hydropic gallbladder with stones and pericholecystic fluid but without he wall thickening. Findings are equivocal for acute cholecystitis. If further evaluation desired, nuclear medicine HIDA scan can be performed. ACT 112: Negative or not required by law. Electronically signed by: Elvin Conway M.D. 11/29/2022 7:16 PM Hepatobiliary Scan Nuclear Medicine 11/30/22 20:11 NM hepatobiliary EF CLINICAL HISTORY: to R/O acute cholecystitis. TECHNIQUE: Following the intravenous injection of 4.90 mCi of Tc-99m labeled Technetium 99m mebrofenin, multiple images of the upper abdomen were obtained in the anterior projection with uptake measurements of the gallbladder obtained. Once the gallbladder and small bowel were visualized, the patient was intravenously infused over 30 minutes with 0.02 mcg/kg of Sincalide (CCK), and imaging and uptakes were again obtained. Comparison: Comparison is made to MRCP 11/29/2022 FINDINGS: Uptake is seen in the liver however no definite gallbladder uptake is seen. Excretion into the intestines was also not seen. IMPRESSION: Indeterminate findings with no definite uptake in the gallbladder. Findings are concerning for acute cholecystitis. Reference: Normal gallbladder ejection fraction is greater than 33%. ACT 112: Negative or not required by law. Electronically signed by: Elvin Conway M.D. 11/30/2022 1:17 PM
[2022-11-30] MEDS: PIPERACILLIN/TAZOBACTAM 4.5 GM in DEXTROSE 5% 100 ML IV SCH (20:06)
[2022-12-01] MEDS: SODIUM CHLORIDE 0.9% 1,000 ML IV SCH ×2 (02:56→13:21)
[2022-12-01] MEDS ORDERED: Nursing to Pharmacy Communication SCH (03:30)
[2022-12-01] MEDS: PIPERACILLIN/TAZOBACTAM 4.5 GM in DEXTROSE 5% 100 ML IV SCH (05:24)
[2022-12-01] MEDS: NICOTINE 21 MG/24 HR TDSY TD SCH (08:16)
--- NOTE | 2022-12-01 11:19 | Gastroenterology Progress Note ---
Date of Service December 01, 2022 Assessment & Plan (1) Jaundice: Plan: Pt is a 42 yo female w symptoms of jaundice, malaise and fatigue, noted to have elevated LFTs. Etiology unclear but concerning for viral hepatitis vs DILI. Serologies pending. Also just started back on lithium, thus need to consider DILI. Imaging studies showed cholelithiasis w cholecystitis. No signs of biliary dilation or obstruction noted on multiple studies. Abd soft, nontender, AAO x3 w/o encephalopathy on exam. - Continue IVF support - Trend daily LFTs, INR - AM labs pending - N-Acetylcysteine protocol started for liver protection for possible DILI - F/U on viral and acute hepatitis serologies, urine toxicology - No indication for ERCP given no biliary ductal dilation or obstruction noted (reviewed with Radiology) - Surgery also consulted - Avoid hepatotoxins, APAP no more than 2g a day if needed Thank you for allowing us to participate in the care of this patient. Please call with any acute changes, questions or concerns. Please see addendum below with additional recommendation from my supervising physician. Admission and Anticipated Discharge Date Admission Date: November 29, 2022 Supervising Physician Co-Signing Physician Notes I have seen and examined the patient with NIKOS Solis whose note reflects our findings and plan. Transaminases starting to improve. Bili lagging. No abd pain, nausea or vomiting. INR 1.3 yesterday. 1.2 today. Mentating well. No signs of encephalopathy. Anticipate gaurang will start to improve. Awaing remainder of work up for viral hepatitis. Repeat LFTs, INR in the AM tomorrow. Subjective Patient seen and examined, chart reviewed. No acute events overnight. AM labs pending Pt denies abd pain, nausea ,vomiting, hematemesis, melena, hematochezia, dark urine, fever, chills, CP. Review of Systems Review of Systems: All systems reviewed & are unremarkable except as noted in HPI & below Physical Exam Constitutional: well developed, well nourished and comfortable; no acute distress Eyes: + icterus ENMT: moist mucous membranes, no pallor Neck: trachea midline supple Respiratory: normal resp effort Cardiovascular: RRR, no murmur, no edema Gastrointestinal (Abdomen): Inspection/Auscultation: abdomen not distended Skin: no rashes, warm and dry (+ jaundice) Neurologic: alert and oriented x 3, no obvious focal neuro deficit Psychiatric: normal mood and affect. No asterixis Results & Data Vital Signs (Past 12 Hours) Vital Signs Temp Pulse Resp BP Pulse Ox O2 Del Method 12/01/22 08:08 36.8 C 64 16 105/70 96 Room Air Laboratory Results 12/01/22 12/01/22 12/01/22 Range/Units 11:02 11:01 11:01 WBC 5.98 (4.8-10.8) K/ul RBC 4.85 (4.20-5.40) M/uL Hgb 13.7 (12.0-16.0) g/dl Hct 41.9 (37.0-47.0) % MCV 86.4 (80.0-100.0) fL MCH 28.2 (25.0-34.0) pg MCHC 32.7 (32.0-36.0) g/dL RDW Std Deviation 59.5 H (36.4-46.3) fL RDW Coeff of Myra 19.1 H (11.5-14.5) % Plt Count 294 (130-400) K/uL MPV 13.2 H (9.4-12.4) fL Immature Gran % (Auto) 0.2 % Neut % (Auto) 55.9 % Lymph % (Auto) 30.8 % [place] % (Auto) 11.9 % Eos % (Auto) 0.2 % Baso % (Auto) 1.0 % Neut # (Auto) 3.35 (1.40-6.50) K/uL Lymph # (Auto) 1.84 (1.20-3.40) K/uL [place] # (Auto) 0.71 H (0.11-0.59) K/uL Eos # (Auto) 0.01 (0.00-0.50) K/uL Baso # (Auto) 0.06 (0.00-0.20) K/uL Immature Gran # (Auto) 0.01 (0.01-0.20) K/uL PT Pending INR Pending Sodium Pending (136-145) mmol/L Potassium Pending (3.5-5.1) mmol/L Chloride Pending (98-107) mmol/L Carbon Dioxide Pending (21-32) mmol/L Anion Gap Pending (3-11) BUN Pending (6-23) mg/dl Creatinine Pending (0.6-1.2) mg/dl Est Cr Clr Drug Dosing Pending ml/min Est GFR ( Amer) Pending ml/min Est GFR (Non-Af Amer) Pending ml/min BUN/Creatinine Ratio Pending (10-20) Glucose Pending (70-99(Fasting)) mg/dl Calcium Pending (8.6-10.3) mg/dl Total Bilirubin Pending (0.2-1.0) mg/dl Direct Bilirubin (0-0.2) mg/dl AST Pending (13-39) U/L ALT Pending (7-52) U/L Alkaline Phosphatase Pending (34-104) U/L Total Protein Pending (6.0-8.3) gm/dl Albumin Pending (3.4-5.0) gm/dl Globulin Pending Albumin/Globulin Ratio Pending Ur Butalbital Confirm Urine Opiates Screen U Codeine Confrm GC/MS Ur Morphine (GC/MS) Ur Hydrocodone (GC/MS) U Norhydrocodone Conf Ur Oxycodone Screen U Noroxycodone Confirm Ur Oxycodone GC/MS U Oxymorphone GC/MS EDDP Confirm Ur Methadone, Qual Ur Methadone Ur Hydromorphone (GC/MS) Urine Barbiturates Ur Phencyclidine Scrn Urine PCP Confirm Ur Amphetamines Screen U Amphetamines Confirm Methamphetamine GC/MS Ur Amobarbital GC/MS U Pentobarbital GC/MS U Phenobarbital GC/MS U Secobarbital GC/MS U c-TR-Nbqtawvvy GC/MS U Benzodiazepines Scrn U 7-Aminoclonazepam Screen Ur Nordiazepam GC/MS U OH-ethylfluraz GC/MS U Lorazepam Cnf GC/MS U Oxazepam Confm GC/MS Ur Temazepam Cnf GC/MS U a-Hydroxytriaz GC/MS U v-DC-Pzekqohdk [place] Urine Cocaine U Cocaine Metab Confirm Tetrahydrocannabinol U Marijuana (THC) Screen Drug Screen Comment CMV IgM Ab CMV IgG Ab/TORCH EBV Capsid Ag IgG Ab EBV Capsid Ag IgM Ab EBV EA Restrict+Diffuse EBV Nuclear Antigen Ab EBV Antibody Interp Herpes Virus Source HSV I DNA PCR HSV II DNA PCR Monoscreen (Negative) Parvovirus IgG Ab Index Parvovirus IgM Ab Index Reference Lab 12/01/22 11/30/22 11/30/22 Range/Units 11:01 12:34 12:34 WBC (4.8-10.8) K/ul RBC (4.20-5.40) M/uL Hgb (12.0-16.0) g/dl Hct (37.0-47.0) % MCV (80.0-100.0) fL MCH (25.0-34.0) pg MCHC (32.0-36.0) g/dL RDW Std Deviation (36.4-46.3) fL RDW Coeff of Myra (11.5-14.5) % Plt Count (130-400) K/uL MPV (9.4-12.4) fL Immature Gran % (Auto) % Neut % (Auto) % Lymph % (Auto) % [place] % (Auto) % Eos % (Auto) % Baso % (Auto) % Neut # (Auto) (1.40-6.50) K/uL Lymph # (Auto) (1.20-3.40) K/uL [place] # (Auto) (0.11-0.59) K/uL Eos # (Auto) (0.00-0.50) K/uL Baso # (Auto) (0.00-0.20) K/uL Immature Gran # (Auto) (0.01-0.20) K/uL PT INR Sodium (136-145) mmol/L Potassium (3.5-5.1) mmol/L Chloride (98-107) mmol/L Carbon Dioxide (21-32) mmol/L Anion Gap (3-11) BUN (6-23) mg/dl Creatinine (0.6-1.2) mg/dl Est Cr Clr Drug Dosing ml/min Est GFR ( Amer) ml/min Est GFR (Non-Af Amer) ml/min BUN/Creatinine Ratio (10-20) Glucose (70-99(Fasting)) mg/dl Calcium (8.6-10.3) mg/dl Total Bilirubin (0.2-1.0) mg/dl Direct Bilirubin (0-0.2) mg/dl AST (13-39) U/L ALT (7-52) U/L Alkaline Phosphatase (34-104) U/L Total Protein (6.0-8.3) gm/dl Albumin (3.4-5.0) gm/dl Globulin Albumin/Globulin Ratio Ur Butalbital Confirm Urine Opiates Screen U Codeine Confrm GC/MS Ur Morphine (GC/MS) Ur Hydrocodone (GC/MS) U Norhydrocodone Conf Ur Oxycodone Screen U Noroxycodone Confirm Ur Oxycodone GC/MS U Oxymorphone GC/MS EDDP Confirm Ur Methadone, Qual Ur Methadone Ur Hydromorphone (GC/MS) Urine Barbiturates Ur Phencyclidine Scrn Urine PCP Confirm Ur Amphetamines Screen U Amphetamines Confirm Methamphetamine GC/MS Ur Amobarbital GC/MS U Pentobarbital GC/MS U Phenobarbital GC/MS U Secobarbital GC/MS U v-VA-Cokjfyrnu GC/MS U Benzodiazepines Scrn U 7-Aminoclonazepam Screen Ur Nordiazepam GC/MS U OH-ethylfluraz GC/MS U Lorazepam Cnf GC/MS U Oxazepam Confm GC/MS Ur Temazepam Cnf GC/MS U a-Hydroxytriaz GC/MS U x-ZI-Wuzpowmfs [place] Pending Urine Cocaine U Cocaine Metab Confirm Tetrahydrocannabinol U Marijuana (THC) Screen Drug Screen Comment CMV IgM Ab Pending CMV IgG Ab/TORCH Pending EBV Capsid Ag IgG Ab Pending EBV Capsid Ag IgM Ab Pending EBV EA Restrict+Diffuse Pending EBV Nuclear Antigen Ab Pending EBV Antibody Interp Pending Herpes Virus Source Pending HSV I DNA PCR Pending HSV II DNA PCR Pending Monoscreen (Negative) Parvovirus IgG Ab Index Pending Parvovirus IgM Ab Index Pending Reference Lab 11/30/22 11/30/22 11/30/22 Range/Units 12:34 10:53 02:37 WBC (4.8-10.8) K/ul RBC (4.20-5.40) M/uL Hgb (12.0-16.0) g/dl Hct (37.0-47.0) % MCV (80.0-100.0) fL MCH (25.0-34.0) pg MCHC (32.0-36.0) g/dL RDW Std Deviation (36.4-46.3) fL RDW Coeff of Myra (11.5-14.5) % Plt Count (130-400) K/uL MPV (9.4-12.4) fL Immature Gran % (Auto) % Neut % (Auto) % Lymph % (Auto) % [place] % (Auto) % Eos % (Auto) % Baso % (Auto) % Neut # (Auto) (1.40-6.50) K/uL Lymph # (Auto) (1.20-3.40) K/uL [place] # (Auto) (0.11-0.59) K/uL Eos # (Auto) (0.00-0.50) K/uL Baso # (Auto) (0.00-0.20) K/uL Immature Gran # (Auto) (0.01-0.20) K/uL PT INR Sodium 137 (136-145) mmol/L Potassium 4.2 (3.5-5.1) mmol/L Chloride 107 (98-107) mmol/L Carbon Dioxide 25 (21-32) mmol/L Anion Gap 5 (3-11) BUN 5 L (6-23) mg/dl Creatinine 0.84 (0.6-1.2) mg/dl Est Cr Clr Drug Dosing 73.6 ml/min Est GFR ( Amer) 100.8 ml/min Est GFR (Non-Af Amer) 86.9 ml/min BUN/Creatinine Ratio 6.0 L (10-20) Glucose 115 H (70-99(Fasting)) mg/dl Calcium 8.2 L (8.6-10.3) mg/dl Total Bilirubin 17.2 H (0.2-1.0) mg/dl Direct Bilirubin 8.7 H (0-0.2) mg/dl AST 1559 H (13-39) U/L ALT 1341 H (7-52) U/L Alkaline Phosphatase 402 H (34-104) U/L Total Protein 5.6 L (6.0-8.3) gm/dl Albumin 3.3 L (3.4-5.0) gm/dl Globulin Albumin/Globulin Ratio Ur Butalbital Confirm Pending Urine Opiates Screen Pending U Codeine Confrm GC/MS Pending Ur Morphine (GC/MS) Pending Ur Hydrocodone (GC/MS) Pending U Norhydrocodone Conf Pending Ur Oxycodone Screen Pending U Noroxycodone Confirm Pending Ur Oxycodone GC/MS Pending U Oxymorphone GC/MS Pending EDDP Confirm Pending Ur Methadone, Qual Pending Ur Methadone Pending Ur Hydromorphone (GC/MS) Pending Urine Barbiturates Pending Ur Phencyclidine Scrn Pending Urine PCP Confirm Pending Ur Amphetamines Screen Pending U Amphetamines Confirm Pending Methamphetamine GC/MS Pending Ur Amobarbital GC/MS Pending U Pentobarbital GC/MS Pending U Phenobarbital GC/MS Pending U Secobarbital GC/MS Pending U w-GI-Vemyummfs GC/MS Pending U Benzodiazepines Scrn Pending U 7-Aminoclonazepam Screen Pending Ur Nordiazepam GC/MS Pending U OH-ethylfluraz GC/MS Pending U Lorazepam Cnf GC/MS Pending U Oxazepam Confm GC/MS Pending Ur Temazepam Cnf GC/MS Pending U a-Hydroxytriaz GC/MS Pending U i-IY-Mgldzabkl Pending [place] Urine Cocaine Pending U Cocaine Metab Confirm Pending Tetrahydrocannabinol Pending U Marijuana (THC) Screen Pending Drug Screen Comment Pending CMV IgM Ab CMV IgG Ab/TORCH EBV Capsid Ag IgG Ab EBV Capsid Ag IgM Ab EBV EA Restrict+Diffuse EBV Nuclear Antigen Ab EBV Antibody Interp Herpes Virus Source HSV I DNA PCR HSV II DNA PCR Monoscreen Negative (Negative) Parvovirus IgG Ab Index Parvovirus IgM Ab Index Reference Lab Pending
[2022-12-01 11:23] LABS: Basophils # (auto) 0.06 K/uL (0.00-0.20); Eosinophils # (auto) 0.01 K/uL (0.00-0.50); Eosinophils % (auto) 0.2 %; Hematocrit (blood only) 41.9 % (37.0-47.0); Hemoglobin 13.7 g/dl (12.0-16.0); Immature Granulocytes # (auto) 0.01 K/uL (0.01-0.20); Immature Granulocytes % (auto) 0.2 %; Lymphocytes # (auto) 1.84 K/uL (1.20-3.40); Lymphocytes % (auto) 30.8 %; Mean Corpuscular Hemoglobin 28.2 pg (25.0-34.0); Mean Corpuscular Hgb Conc 32.7 g/dL (32.0-36.0); Mean Corpuscular Volume 86.4 fL (80.0-100.0); Mean Platelet Volume 13.2 fL (9.4-12.4); Monocytes # (auto) 0.71 K/uL (0.11-0.59); Monocytes % (auto) 11.9 %; Neutrophils # (auto) 3.35 K/uL (1.40-6.50); Neutrophils % (auto) 55.9 %; Platelet Count 294 K/uL (130-400); RDW Coefficient of Variation 19.1 % (11.5-14.5); RDW Standard Deviation 59.5 fL (36.4-46.3); Red Blood Count 4.85 M/uL (4.20-5.40); White Blood Count 5.98 K/ul (4.8-10.8)
[2022-12-01 11:30] LABS: Albumin Level 3.6 gm/dl (3.4-5.0); Calcium 8.3 mg/dl (8.6-10.3); INR 1.2 (0.9-1.1); Potassium 3.7 mmol/L (3.5-5.1); Prothrombin Time 12.7 Seconds (9.0-12.0)
[2022-12-01 11:36] LABS: BUN Creatinine Ratio 3.6 (10-20); Creatinine Clr Calc Pharmacy 74.5 ml/min; Est GFR (African American) 102.2 ml/min; Est GFR (Non-African American) 88.2 ml/min
[2022-12-01 11:37] LABS: Albumin Globulin Ratio 1.6 (0.9-2); Globulin 2.2 gm/dl (2.5-4.0); Total Protein 5.8 gm/dl (6.0-8.3)
[2022-12-01] MEDS ORDERED: DEXTROSE 5% IV ONE ×3 (11:45→17:00)
[2022-12-01] MEDS ORDERED: ACETYLCYSTEINE IV ONE ×3 (11:45→17:00)
--- NOTE | 2022-12-01 12:07 | Surgery Progress Note ---
Date of Service December 01, 2022 Assessment & Plan (1) Acute viral hepatitis: (2) Jaundice: (3) Cholecystitis with cholelithiasis: Plan: 42 year old female who was admitted to the hospital for 1 week history of weakness, fatigue, jaundice. With a past medical history of opiate abuse. Bilirubin 16, AST 1600, ALT 1400, lipase normal. U/S and MRCP, possible acute cholecystitis, cholelithiasis. 12/01/2022: afebrile, vss no leukocytosis no complaints of abdominal pain, nausea, or vomiting t. bili still elevated at 17, lfts still markedly elevated but improving alk phos slightly increased hepatitis panel still pending Plan: Given patients HIDA scan showing no uptake into gallbladder or small intestine there is concern for acute cholecystitis as well as possible biliary obstruction respectively. Dr. Covarrubias recommending transfer to [facility] for further diagnosis and management as concern for possible biliary obstruction and risk of liver failure if proceeding with cholecystectomy. Dr. Covarrubias talked with Dr. Poe at [facility] who accepted patient in transfer Continue current medical management Continue IV abx Dr. Covarrubias discussed above with patient. I called [facility] DR. Poe who accepted pt. pt agreed with transfer. I answered all questions. Admission and Anticipated Discharge Date Admission Date: November 29, 2022 Supervising Physician Co-Signing Physician Notes I have seen and examined the patient with NIKSO Solis whose note reflects our findings and plan. Transaminases starting to improve. Bili lagging. No abd pain, nausea or vomiting. INR 1.3 yesterday. 1.2 today. Mentating well. No signs of encephalopathy. Anticipate gaurang will start to improve. Awaing remaind er of work up for viral hepatitis. Repeat LFTs, INR in the AM tomorrow. Subjective "ready to get out of here" patient seems upset, does not give much ROS Review of Systems Constitutional: as per Subjective / HPI jundice Eyes: jundice Respiratory: as per Subjective / HPI Cardiovascular: as per Subjective / HPI Gastrointestinal: as per Subjective / HPI Musculoskeletal: as per Subjective / HPI Neurologic: as per Subjective / HPI Psychiatric: as per Subjective / HPI (opioid abuse) Endocrine: as per Subjective / HPI Hematologic / Lymphatic: as per Subjective / HPI Physical Exam Constitutional: WD/WN, vitals as above comfortable; no acute distress, not ill appearing, not in distress, not diaphoretic and not lethargic Eyes: +icterus Neck: trachea midline, no thyromegaly Respiratory: normal respiratory effort, lungs clear to auscultation normal respiratory effort; no respiratory distress Cardiovascular: RRR, no murmur, no edema Gastrointestinal (Abdomen): Inspection/Auscultation: abdomen not distended Musculoskeletal: no cyanosis or clubbing, extremities motor strength 5/5 Skin: no rashes, warm and dry + jaundice Neurologic: patellar DTR's 2+ bilat, sensation intact Psychiatric: A+Ox3, euthymic affect Orientation: alert and oriented x 3 Affect: + angry affect Results & Data Vital Signs (Past 12 Hours) Vital Signs Temp Pulse Resp BP Pulse Ox O2 Del Method 12/01/22 08:08 36.8 C 64 16 105/70 96 Room Air Laboratory Results 12/01/22 12/01/22 12/01/22 Range/Units 11:02 11:01 11:01 WBC 5.98 (4.8-10.8) K/ul RBC 4.85 (4.20-5.40) M/uL Hgb 13.7 (12.0-16.0) g/dl Hct 41.9 (37.0-47.0) % MCV 86.4 (80.0-100.0) fL MCH 28.2 (25.0-34.0) pg MCHC 32.7 (32.0-36.0) g/dL RDW Std Deviation 59.5 H (36.4-46.3) fL RDW Coeff of Myra 19.1 H (11.5-14.5) % Plt Count 294 (130-400) K/uL MPV 13.2 H (9.4-12.4) fL Immature Gran % (Auto) 0.2 % Neut % (Auto) 55.9 % Lymph % (Auto) 30.8 % [place] % (Auto) 11.9 % Eos % (Auto) 0.2 % Baso % (Auto) 1.0 % Neut # (Auto) 3.35 (1.40-6.50) K/uL Lymph # (Auto) 1.84 (1.20-3.40) K/uL [place] # (Auto) 0.71 H (0.11-0.59) K/uL Eos # (Auto) 0.01 (0.00-0.50) K/uL Baso # (Auto) 0.06 (0.00-0.20) K/uL Immature Gran # (Auto) 0.01 (0.01-0.20) K/uL PT 12.7 H (9.0-12.0) Seconds INR 1.2 H (0.9-1.1) Sodium 137 (136-145) mmol/L Potassium 3.7 (3.5-5.1) mmol/L Chloride 106 (98-107) mmol/L Carbon Dioxide 24 (21-32) mmol/L Anion Gap 7 (3-11) BUN 3 L (6-23) mg/dl Creatinine 0.83 (0.6-1.2) mg/dl Est Cr Clr Drug Dosing 74.5 ml/min Est GFR ( Amer) 102.2 ml/min Est GFR (Non-Af Amer) 88.2 ml/min BUN/Creatinine Ratio 3.6 L (10-20) Glucose 101 H (70-99(Fasting)) mg/dl Calcium 8.3 L (8.6-10.3) mg/dl Total Bilirubin 17.0 H (0.2-1.0) mg/dl Direct Bilirubin (0-0.2) mg/dl AST 1174 H (13-39) U/L ALT 1211 H (7-52) U/L Alkaline Phosphatase 441 H (34-104) U/L Total Protein 5.8 L (6.0-8.3) gm/dl Albumin 3.6 (3.4-5.0) gm/dl Globulin 2.2 L (2.5-4.0) gm/dl Albumin/Globulin Ratio 1.6 (0.9-2) Ur Butalbital Confirm Urine Opiates Screen U Codeine Confrm GC/MS Ur Morphine (GC/MS) Ur Hydrocodone (GC/MS) U Norhydrocodone Conf Ur Oxycodone Screen U Noroxycodone Confirm Ur Oxycodone GC/MS U Oxymorphone GC/MS EDDP Confirm Ur Methadone, Qual Ur Methadone Ur Hydromorphone (GC/MS) Urine Barbiturates Ur Phencyclidine Scrn Urine PCP Confirm Ur Amphetamines Screen U Amphetamines Confirm Methamphetamine GC/MS Ur Amobarbital GC/MS U Pentobarbital GC/MS U Phenobarbital GC/MS U Secobarbital GC/MS U u-GF-Wrtknjlgh GC/MS U Benzodiazepines Scrn U 7-Aminoclonazepam Screen Ur Nordiazepam GC/MS U OH-ethylfluraz GC/MS U Lorazepam Cnf GC/MS U Oxazepam Confm GC/MS Ur Temazepam Cnf GC/MS U a-Hydroxytriaz GC/MS U l-AS-Ekusrncvw [place] (0.6-1.2) mmol/L Urine Cocaine U Cocaine Metab Confirm Tetrahydrocannabinol U Marijuana (THC) Screen Drug Screen Comment CMV IgM Ab CMV IgG Ab/TORCH EBV Capsid Ag IgG Ab EBV Capsid Ag IgM Ab EBV EA Restrict+Diffuse EBV Nuclear Antigen Ab EBV Antibody Interp Herpes Virus Source HSV I DNA PCR HSV II DNA PCR Monoscreen (Negative) Parvovirus IgG Ab Index Parvovirus IgM Ab Index Reference Lab 12/01/22 11/30/22 11/30/22 Range/Units 11:01 12:34 12:34 WBC (4.8-10.8) K/ul RBC (4.20-5.40) M/uL Hgb (12.0-16.0) g/dl Hct (37.0-47.0) % MCV (80.0-100.0) fL MCH (25.0-34.0) pg MCHC (32.0-36.0) g/dL RDW Std Deviation (36.4-46.3) fL RDW Coeff of Myra (11.5-14.5) % Plt Count (130-400) K/uL MPV (9.4-12.4) fL Immature Gran % (Auto) % Neut % (Auto) % Lymph % (Auto) % [place] % (Auto) % Eos % (Auto) % Baso % (Auto) % Neut # (Auto) (1.40-6.50) K/uL Lymph # (Auto) (1.20-3.40) K/uL [place] # (Auto) (0.11-0.59) K/uL Eos # (Auto) (0.00-0.50) K/uL Baso # (Auto) (0.00-0.20) K/uL Immature Gran # (Auto) (0.01-0.20) K/uL PT (9.0-12.0) Seconds INR (0.9-1.1) Sodium (136-145) mmol/L Potassium (3.5-5.1) mmol/L Chloride (98-107) mmol/L Carbon Dioxide (21-32) mmol/L Anion Gap (3-11) BUN (6-23) mg/dl Creatinine (0.6-1.2) mg/dl Est Cr Clr Drug Dosing ml/min Est GFR ( Amer) ml/min Est GFR (Non-Af Amer) ml/min BUN/Creatinine Ratio (10-20) Glucose (70-99(Fasting)) mg/dl Calcium (8.6-10.3) mg/dl Total Bilirubin (0.2-1.0) mg/dl Direct Bilirubin (0-0.2) mg/dl AST (13-39) U/L ALT (7-52) U/L Alkaline Phosphatase (34-104) U/L Total Protein (6.0-8.3) gm/dl Albumin (3.4-5.0) gm/dl Globulin (2.5-4.0) gm/dl Albumin/Globulin Ratio (0.9-2) Ur Butalbital Confirm Urine Opiates Screen U Codeine Confrm GC/MS Ur Morphine (GC/MS) Ur Hydrocodone (GC/MS) U Norhydrocodone Conf Ur Oxycodone Screen U Noroxycodone Confirm Ur Oxycodone GC/MS U Oxymorphone GC/MS EDDP Confirm Ur Methadone, Qual Ur Methadone Ur Hydromorphone (GC/MS) Urine Barbiturates Ur Phencyclidine Scrn Urine PCP Confirm Ur Amphetamines Screen U Amphetamines Confirm Methamphetamine GC/MS Ur Amobarbital GC/MS U Pentobarbital GC/MS U Phenobarbital GC/MS U Secobarbital GC/MS U c-XT-Fbjzqviop GC/MS U Benzodiazepines Scrn U 7-Aminoclonazepam Screen Ur Nordiazepam GC/MS U OH-ethylfluraz GC/MS U Lorazepam Cnf GC/MS U Oxazepam Confm GC/MS Ur Temazepam Cnf GC/MS U a-Hydroxytriaz GC/MS U h-QT-Amllmrxne [place] < 0.1 L (0.6-1.2) mmol/L Urine Cocaine U Cocaine Metab Confirm Tetrahydrocannabinol U Marijuana (THC) Screen Drug Screen Comment CMV IgM Ab Pending CMV IgG Ab/TORCH Pending EBV Capsid Ag IgG Ab Pending EBV Capsid Ag IgM Ab Pending EBV EA Restrict+Diffuse Pending EBV Nuclear Antigen Ab Pending EBV Antibody Interp Pending Herpes Virus Source Pending HSV I DNA PCR Pending HSV II DNA PCR Pending Monoscreen (Negative) Parvovirus IgG Ab Index Pending Parvovirus IgM Ab Index Pending Reference Lab 11/30/22 11/30/22 11/30/22 Range/Units 12:34 10:53 02:37 WBC (4.8-10.8) K/ul RBC (4.20-5.40) M/uL Hgb (12.0-16.0) g/dl Hct (37.0-47.0) % MCV (80.0-100.0) fL MCH (25.0-34.0) pg MCHC (32.0-36.0) g/dL RDW Std Deviation (36.4-46.3) fL RDW Coeff of Myra (11.5-14.5) % Plt Count (130-400) K/uL MPV (9.4-12.4) fL Immature Gran % (Auto) % Neut % (Auto) % Lymph % (Auto) % [place] % (Auto) % Eos % (Auto) % Baso % (Auto) % Neut # (Auto) (1.40-6.50) K/uL Lymph # (Auto) (1.20-3.40) K/uL [place] # (Auto) (0.11-0.59) K/uL Eos # (Auto) (0.00-0.50) K/uL Baso # (Auto) (0.00-0.20) K/uL Immature Gran # (Auto) (0.01-0.20) K/uL PT (9.0-12.0) Seconds INR (0.9-1.1) Sodium 137 (136-145) mmol/L Potassium 4.2 (3.5-5.1) mmol/L Chloride 107 (98-107) mmol/L Carbon Dioxide 25 (21-32) mmol/L Anion Gap 5 (3-11) BUN 5 L (6-23) mg/dl Creatinine 0.84 (0.6-1.2) mg/dl Est Cr Clr Drug Dosing 73.6 ml/min Est GFR ( Amer) 100.8 ml/min Est GFR (Non-Af Amer) 86.9 ml/min BUN/Creatinine Ratio 6.0 L (10-20) Glucose 115 H (70-99(Fasting)) mg/dl Calcium 8.2 L (8.6-10.3) mg/dl Total Bilirubin 17.2 H (0.2-1.0) mg/dl Direct Bilirubin 8.7 H (0-0.2) mg/dl AST 1559 H (13-39) U/L ALT 1341 H (7-52) U/L Alkaline Phosphatase 402 H (34-104) U/L Total Protein 5.6 L (6.0-8.3) gm/dl Albumin 3.3 L (3.4-5.0) gm/dl Globulin (2.5-4.0) gm/dl Albumin/Globulin Ratio (0.9-2) Ur Butalbital Confirm Pending Urine Opiates Screen Pending U Codeine Confrm GC/MS Pending Ur Morphine (GC/MS) Pending Ur Hydrocodone (GC/MS) Pending U Norhydrocodone Conf Pending Ur Oxycodone Screen Pending U Noroxycodone Confirm Pending Ur Oxycodone GC/MS Pending U Oxymorphone GC/MS Pending EDDP Confirm Pending Ur Methadone, Qual Pending Ur Methadone Pending Ur Hydromorphone (GC/MS) Pending Urine Barbiturates Pending Ur Phencyclidine Scrn Pending Urine PCP Confirm Pending Ur Amphetamines Screen Pending U Amphetamines Confirm Pending Methamphetamine GC/MS Pending Ur Amobarbital GC/MS Pending U Pentobarbital GC/MS Pending U Phenobarbital GC/MS Pending U Secobarbital GC/MS Pending U p-PX-Hcpwrgeqj GC/MS Pending U Benzodiazepines Scrn Pending U 7-Aminoclonazepam Screen Pending Ur Nordiazepam GC/MS Pending U OH-ethylfluraz GC/MS Pending U Lorazepam Cnf GC/MS Pending U Oxazepam Confm GC/MS Pending Ur Temazepam Cnf GC/MS Pending U a-Hydroxytriaz GC/MS Pending U p-NI-Tbwtyfkso Pending [place] (0.6-1.2) mmol/L Urine Cocaine Pending U Cocaine Metab Confirm Pending Tetrahydrocannabinol Pending U Marijuana (THC) Screen Pending Drug Screen Comment Pending CMV IgM Ab CMV IgG Ab/TORCH EBV Capsid Ag IgG Ab EBV Capsid Ag IgM Ab EBV EA Restrict+Diffuse EBV Nuclear Antigen Ab EBV Antibody Interp Herpes Virus Source HSV I DNA PCR HSV II DNA PCR Monoscreen Negative (Negative) Parvovirus IgG Ab Index Parvovirus IgM Ab Index Reference Lab Pending
--- NOTE | 2022-12-01 12:59 | Hospitalist Progress Note ---
Date of Service December 01, 2022 Assessment & Plan (1) Acute cholecystitis: (2) Opioid abuse: (3) Elevated liver enzymes: Plan Patient is a 42-year-old female with history of bipolar disorder who presented with worsening weakness and fatigue over the last 1 week. She presented to the ED for concerned with jaundice. Labs reviewed; no leukocytosis. Hemoglobin stable at 12-13. Transaminitis slightly improving AST 1603 > 1559 >1174. ALT 1476 > 1341 > 1211 ALP- 499 > 402 >441. Total bilirubin is 17.2 with direct bilirubin of 8.7. PT/INR13.6/1.2. Right upper quadrant ultrasound done; cholelithiasis within abnormal appearing gallbladder with trace pericholecystic fluid. MRCP showed hydropic gallbladder with stone and pericholecystic fluid. No intra or extrahepatic biliary duct dilation. HIDA scan no definitive gallbladder uptake is seen. Excretion into the intestine was also not seen. Antibiotics switched over to cefepime/Flagyl given incompatibility of N- acetylcysteine with Zosyn. Obtain CBC, CMP and PT/INR daily Avoid hepatotoxic agents. Discussed with Dr. Covarrubias from surgery; he recommended ERCP prior to laparoscopic cholecystectomy or transfer to tertiary care center for ERCP/laparoscopic cholecystectomy. Dr. Covarrubias discussed the case with transfer center. Patient accepted for transfer with accepting doctor (Dhara Cardenas) Discussed with Dr. Goldberg from GI; no indication for ERCP. The likely underlying cause for the elevated liver enzymes is hepatitis, likely drug- induced. Patient was started on N-acetylcysteine by GI [place] [facility] [place]. Time spent evaluating patient, direct bedside care, chart review, placing orders, interpretation of diagnostic studies, discussion with consultants, patient, and family members, as well as other required patient management activities is 60 minutes. Please note the above document was generated using voice recognition software. It may contain grammatical, syntax or spelling errors. Any formal questions or concerns about the content, text or information contained within the body of this dictation should be directly addressed to the provider for clarification Admission and Anticipated Discharge Date Admission Date: November 29, 2022 Subjective Patient seen and examined at bedside. She is sitting up on the bed comfortably; not in distress. Denies nausea vomiting or abdominal pain. Review of Systems Review of Systems: All systems reviewed & are unremarkable except as noted in Subjective Physical Exam Physical Exam: Constitutional: Awake, alert orient x3. Eyes: Icteric sclera Respiratory: Bilateral basal breath sound. Cardiovascular: RRR, no murmur, no edema Vessels: no JVD or carotid bruit Chest: normal inspection of chest Abdomen: Soft, nontender. Musculoskeletal: no cyanosis or clubbing, extremities motor strength 5/5 Skin: no rashes, warm and dry normal turgor Neurologic: PERRL, EOMI, accommodation nl, no face palsy, no dysarthria CN's II- XI intact bilaterally and moves all extremities Psychiatric: A+Ox3, euthymic affect Results & Data Results & Data Vital Signs (Past 12 Hours) Vital Signs Temp Pulse Resp BP Pulse Ox O2 Del Method 12/01/22 08:08 36.8 C 64 16 105/70 96 Room Air Laboratory Results Laboratory Results WBC 5.98 K/ul (4.8-10.8) 12/01/22 11:02 RBC 4.85 M/uL (4.20-5.40) 12/01/22 11:02 Hgb 13.7 g/dl (12.0-16.0) 12/01/22 11:02 Hct 41.9 % (37.0-47.0) 12/01/22 11:02 MCV 86.4 fL (80.0-100.0) 12/01/22 11:02 MCH 28.2 pg (25.0-34.0) 12/01/22 11:02 MCHC 32.7 g/dL (32.0-36.0) 12/01/22 11:02 RDW Std Deviation 59.5 fL (36.4-46.3) H 12/01/22 11:02 RDW Coeff of Myra 19.1 % (11.5-14.5) H 12/01/22 11:02 Plt Count 294 K/uL (130-400) 12/01/22 11:02 MPV 13.2 fL (9.4-12.4) H 12/01/22 11:02 Immature Gran % (Auto) 0.2 % 12/01/22 11:02 Neut % (Auto) 55.9 % 12/01/22 11:02 Lymph % (Auto) 30.8 % 12/01/22 11:02 [place] % (Auto) 11.9 % 12/01/22 11:02 Eos % (Auto) 0.2 % 12/01/22 11:02 Baso % (Auto) 1.0 % 12/01/22 11:02 Neut # (Auto) 3.35 K/uL (1.40-6.50) 12/01/22 11:02 Lymph # (Auto) 1.84 K/uL (1.20-3.40) 12/01/22 11:02 [place] # (Auto) 0.71 K/uL (0.11-0.59) H 12/01/22 11:02 Eos # (Auto) 0.01 K/uL (0.00-0.50) 12/01/22 11:02 Baso # (Auto) 0.06 K/uL (0.00-0.20) 12/01/22 11:02 Immature Gran # (Auto) 0.01 K/uL (0.01-0.20) 12/01/22 11:02 Absolute Nucleated RBC Cancelled 11/29/22 10:24 Nucleated RBC % (auto) Cancelled 11/29/22 10:24 Neutrophils % (Manual) Cancelled 11/29/22 10:24 Band Neutrophils % Cancelled 11/29/22 10:24 Lymphocytes % (Manual) Cancelled 11/29/22 10:24 Prolymphocyte % Cancelled 11/29/22 10:24 Reactive Lymphs % (Man) Cancelled 11/29/22 10:24 Monocytes % (Manual) Cancelled 11/29/22 10:24 Eosinophils % (Manual) Cancelled 11/29/22 10:24 Basophils % (Manual) Cancelled 11/29/22 10:24 Metamyelocytes % (Man) Cancelled 11/29/22 10:24 Myelocytes % (Man) Cancelled 11/29/22 10:24 Promyelocytes % (Man) Cancelled 11/29/22 10:24 Blast Cells % (Manual) Cancelled 11/29/22 10:24 Plasma Cell % (Manual) Cancelled 11/29/22 10:24 Other Cells % Cancelled 11/29/22 10:24 Nucleated RBC % Cancelled 11/29/22 10:24 Neutrophils # (Manual) Cancelled 11/29/22 10:24 Band Neutrophils # Cancelled 11/29/22 10:24 Total Absolute Neuts Cancelled 11/29/22 10:24 Lymphocytes # (Manual) Cancelled 11/29/22 10:24 Prolymphocyte # Cancelled 11/29/22 10:24 Reactive Lymphs # Cancelled 11/29/22 10:24 Total Abs Lymphocytes Cancelled 11/29/22 10:24 Monocytes # (Manual) Cancelled 11/29/22 10:24 Eosinophils # (Manual) Cancelled 11/29/22 10:24 Basophils # (Manual) Cancelled 11/29/22 10:24 Metamyelocytes # (Man) Cancelled 11/29/22 10:24 Myelocytes # (Manual) Cancelled 11/29/22 10:24 Promyelocytes # (Man) Cancelled 11/29/22 10:24 Blast Cells # (Man) Cancelled 11/29/22 10:24 Plasma Cell # (Manual) Cancelled 11/29/22 10:24 Other Cells # Cancelled 11/29/22 10:24 Nucleated RBCs # (Man) Cancelled 11/29/22 10:24 Hypersegmented Neuts Cancelled 11/29/22 10:24 Hyposegmented Neuts Cancelled 11/29/22 10:24 Hypogranular Neuts Cancelled 11/29/22 10:24 Large Granular Lymphs Cancelled 11/29/22 10:24 # Lrg Granular Lymphs Cancelled 11/29/22 10:24 Hairy Cells Cancelled 11/29/22 10:24 Smudge Cells Cancelled 11/29/22 10:24 Toxic Granulation Cancelled 11/29/22 10:24 Toxic Vacuolation Cancelled 11/29/22 10:24 Dohle Bodies Cancelled 11/29/22 10:24 Shakila Rods Cancelled 11/29/22 10:24 Platelet Estimate Cancelled 11/29/22 10:24 Hypogranular Platelets Cancelled 11/29/22 10:24 Giant Platelets Cancelled 11/29/22 10:24 Platelet Satelliting Cancelled 11/29/22 10:24 RBC Morphology Cancelled 11/29/22 10:24 Polychromasia Cancelled 11/29/22 10:24 Hypochromasia Cancelled 11/29/22 10:24 Poikilocytosis Cancelled 11/29/22 10:24 Basophilic Stippling Cancelled 11/29/22 10:24 Anisocytosis Cancelled 11/29/22 10:24 Microcytosis Cancelled 11/29/22 10:24 Macrocytosis Cancelled 11/29/22 10:24 Spherocytes Cancelled 11/29/22 10:24 Pappenheimer Bodies Cancelled 11/29/22 10:24 Sickle Cells Cancelled 11/29/22 10:24 Target Cells Cancelled 11/29/22 10:24 Tear Drop Cells Cancelled 11/29/22 10:24 Ovalocytes Cancelled 11/29/22 10:24 Stomatocytes Cancelled 11/29/22 10:24 [place] Bodies Cancelled 11/29/22 10:24 Echinocytes Cancelled 11/29/22 10:24 Acanthocytes (Spur) Cancelled 11/29/22 10:24 Rouleaux Cancelled 11/29/22 10:24 RBC Agglutinates Cancelled 11/29/22 10:24 Schistocytes Cancelled 11/29/22 10:24 Sezary Cell Cancelled 11/29/22 10:24 PT 12.7 Seconds (9.0-12.0) H 12/01/22 11:01 INR 1.2 (0.9-1.1) H 12/01/22 11:01 Sodium 137 mmol/L (136-145) 12/01/22 11:01 Potassium 3.7 mmol/L (3.5-5.1) 12/01/22 11:01 Chloride 106 mmol/L (98-107) 12/01/22 11:01 Carbon Dioxide 24 mmol/L (21-32) 12/01/22 11:01 Anion Gap 7 (3-11) 12/01/22 11:01 BUN 3 mg/dl (6-23) L 12/01/22 11:01 Creatinine 0.83 mg/dl (0.6-1.2) 12/01/22 11:01 Est Cr Clr Drug Dosing 74.5 ml/min 12/01/22 11:01 Est GFR ( Amer) 102.2 ml/min 12/01/22 11:01 Est GFR (Non-Af Amer) 88.2 ml/min 12/01/22 11:01 BUN/Creatinine Ratio 3.6 (10-20) L 12/01/22 11:01 Glucose 101 mg/dl (70-99(Fasting)) H 12/01/22 11:01 Calcium 8.3 mg/dl (8.6-10.3) L 12/01/22 11:01 Total Bilirubin 17.0 mg/dl (0.2-1.0) H 12/01/22 11:01 Direct Bilirubin 8.7 mg/dl (0-0.2) H 11/30/22 10:53 AST 1174 U/L (13-39) H 12/01/22 11:01 ALT 1211 U/L (7-52) H 12/01/22 11:01 Alkaline Phosphatase 441 U/L (34-104) H 12/01/22 11:01 Total Protein 5.8 gm/dl (6.0-8.3) L 12/01/22 11:01 Albumin 3.6 gm/dl (3.4-5.0) 12/01/22 11:01 Globulin 2.2 gm/dl (2.5-4.0) L 12/01/22 11:01 Albumin/Globulin Ratio 1.6 (0.9-2) 12/01/22 11:01 Lipase 16 U/L (11-82) 11/29/22 13:00 HCG, Qual Negative (Negative) 11/29/22 10:24 Urine Color Dark Yellow 11/30/22 02:36 Urine Appearance Cloudy (Clear) A 11/30/22 02:36 Urine pH 6.5 (4.5-7.5) 11/30/22 02:36 Ur Specific [place] 1.023 (1.000-1.030) 11/30/22 02:36 Urine Protein Trace (Negative) H 11/30/22 02:36 Urine Glucose (UA) Negative (Negative) 11/30/22 02:36 Urine Ketones Trace (Negative) H 11/30/22 02:36 Urine Blood 3+ (Negative) H 11/30/22 02:36 Urine Nitrite Positive (Negative) A 11/30/22 02:36 Urine Bilirubin 3+ (Negative) H 11/30/22 02:36 Urine Urobilinogen Negative (Negative) 11/30/22 02:36 Ur Leukocyte Esterase 1+ (Negative) H 11/30/22 02:36 Urine WBC (Auto) 1-5 /hpf (0-5) 11/30/22 02:36 Urine RBC (Auto) 10-30 /hpf (0-4) H 11/30/22 02:36 U Hyaline Cast (Auto) 1-5 /lpf (0-5) 11/30/22 02:36 U Epithel Cells (Auto) >30 /lpf (0-5) H 11/30/22 02:36 Urine Bacteria (Auto) 2+ (Negative) H 11/30/22 02:36 Urine Crystals Not Reportable 11/30/22 02:36 Urine Mucus Present (None Prsent) A 11/30/22 02:36 Urine Yeast Not Reportable 11/30/22 02:36 [place] < 0.1 mmol/L (0.6-1.2) L 12/01/22 11:01 Monoscreen Negative (Negative) 11/30/22 12:34 Blood Parasites ID Cancelled 11/29/22 10:24 Impressions Gallbladder Ultrasound 11/29/22 10:30 ULTRASOUND RIGHT UPPER QUADRANT ABDOMEN CLINICAL HISTORY: Jaundice. COMPARISON STUDY: Abdominal CT dated 01/31/2018. TECHNIQUE: Real-time, grayscale, and color flow sonography of the right upper quadrant of the abdomen was performed. Images are reviewed in the transverse and longitudinal planes. FINDINGS: Liver: The liver is normal in size and echotexture. There is no intrahepatic biliary ductal dilatation. The main portal vein is patent. Gallbladder: The gallbladder is mildly distended and contains calcified gallstones. The gallbladder wall appears thickened in the region of the gallbladder neck. There is trace pericholecystic fluid. A sonographic Jean's sign is reportedly absent. The common bile duct measures up to 0.3 cm in diameter. Pancreas: Visualized portions of the pancreatic head and body are normal in appearance. Right kidney: Survey images of the right kidney demonstrate normal size and echotexture. There is no hydronephrosis. Ascites: None. There are prominent periaortic lymph nodes. IMPRESSION: 1. Cholelithiasis within an abnormal appearing gallbladder. There is also trace pericholecystic fluid. Mild acute cholecystitis is not excluded. Clinical and laboratory correlation will be essential. A nuclear hepatobiliary scan could be considered for further evaluation. 2. There is no intra or extrahepatic biliary ductal dilatation. 3. Prominent periaortic lymph nodes are nonspecific and may be reactive. ACT 112: Negative or not required by law. Electronically signed by: Amor Cali M.D. 11/29/2022 12:03 PM Cholangiopancreatography MRI 11/29/22 14:53 MR MRCP CLINICAL HISTORY: acute viral hepatitis TECHNIQUE: Multiplanar multisequence MR images of the abdomen were obtained, as per MRCP protocol. . COMPARISON: Comparison is made to right upper quadrant ultrasound 11/29/2022 FINDINGS: Lower chest: No acute abnormality Liver: Unremarkable. No focal lesions are seen. Gallbladder and biliary tree: Gallstone is seen and there is perihepatic fluid. Hydropic appearance of the gallbladder. No intra- or extrahepatic biliary ductal dilation. Pancreas: Unremarkable, no focal lesions. Spleen: Unremarkable. Adrenals: Unremarkable. Kidneys and ureters: Unremarkable. Bowel: Unremarkable. Lymph nodes Retroperitoneal: Unremarkable. Mesenteric: Unremarkable. Peritoneum: Trace ascites is in the right upper quadrant. Vessels: Unremarkable. Abdominal wall: Unremarkable. Bones: Unremarkable. IMPRESSION: Hydropic gallbladder with stones and pericholecystic fluid but without he wall thickening. Findings are equivocal for acute cholecystitis. If further evaluation desired, nuclear medicine HIDA scan can be performed. ACT 112: Negative or not required by law. Electronically signed by: Elvin Conway M.D. 11/29/2022 7:16 PM Hepatobiliary Scan Nuclear Medicine 11/30/22 20:11 NM hepatobiliary EF CLINICAL HISTORY: to R/O acute cholecystitis. TECHNIQUE: Following the intravenous injection of 4.90 mCi of Tc-99m labeled Technetium 99m mebrofenin, multiple images of the upper abdomen were obtained in the anterior projection with uptake measurements of the gallbladder obtained. Once the gallbladder and small bowel were visualized, the patient was intravenously infused over 30 minutes with 0.02 mcg/kg of Sincalide (CCK), and imaging and uptakes were again obtained. Comparison: Comparison is made to MRCP 11/29/2022 FINDINGS: Uptake is seen in the liver however no definite gallbladder uptake is seen. Excretion into the intestines was also not seen. IMPRESSION: Indeterminate findings with no definite uptake in the gallbladder. Findings are concerning for acute cholecystitis. Reference: Normal gallbladder ejection fraction is greater than 33%. ACT 112: Negative or not required by law. Electronically signed by: Elvin Conway M.D. 11/30/2022 1:17 PM
[2022-12-01] MEDS ORDERED: CEFEPIME 2,000 MG in SYRINGE 0 ML IV SCH (13:15)
--- NOTE | 2022-12-01 13:16 | Discharge Summary ---
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 Her weakness got worse over the next few days and she noticed increased yellowish discoloration over the past few days . She went to see her doctor today for evaluation and was transferred to the er because of jaundice. Patient had initial workup done and showed increased bilurubin and markedly elevated liver functions. She has history of ivdu and was states that she last used iv drugs about 6 months back She takes subutex but not every day. She is on lithium but unfortunately is not able to take it over the past few days because of nausea and vomiting. She denies using excessive tylenols or any other substances. She also feels feverish although when checked today she was a 36.7 Admission Exam Per Admitting Provider HEENT:No JVD , Normocephalic , atraumatic CV: S1/S2+ , no murmurs Resp: Air entry present bilaterally.no crackles, no wheeze . GI: Abdomen soft non tender . Musculoskeletal: examined for joint tenderness. Skin: Jaundiced+ Psych: Normal affect Neuro: Patient is awake alert not in distress , No focal neuro deficits noted Ext: no edema. Principal Diagnosis Acute cholecystitis Elevated liver enzymes Discharge Exam Constitutional: Awake, alert orient x3. Eyes: Icteric sclera Respiratory: Bilateral basal breath sound. Cardiovascular: RRR, no murmur, no edema Vessels: no JVD or carotid bruit Chest: normal inspection of chest Abdomen: Soft, nontender. Musculoskeletal: no cyanosis or clubbing, extremities motor strength 5/5 Skin: no rashes, warm and dry normal turgor Neurologic: PERRL, EOMI, accommodation nl, no face palsy, no dysarthria CN's II- XI intact bilaterally and moves all extremities Psychiatric: A+Ox3, euthymic affect Discharge Data Allergies Allergy/AdvReac Type Severity Reaction Status Date / Time pollen extracts Allergy Unknown "SEASONAL Verified 11/29/22 10:44 ALLERGIES" lactose AdvReac Mild GETS Verified 11/29/22 10:44 DIARRHEA Consultations 11/29/22 14:51 ED Decision to Admit Stat 11/29/22 14:56 Consult Gastroenterology Routine 11/29/22 15:12 Consult General Surgery Routine Ordered Studies 11/29/22 10:30 US gallbladder Stat 11/29/22 14:53 MRI MRCP [MR MRCP] Urgent Hospital Course (1) Acute cholecystitis: (2) Elevated liver enzymes: Plan Patient is a 42-year-old female with history of bipolar disorder who presented with worsening weakness and fatigue over the last 1 week. She presented to the ED for concerned with jaundice. Labs reviewed; no leukocytosis. Hemoglobin stable at 12-13. Transaminitis slightly improving AST 1603 > 1559 >1174. ALT 1476 > 1341 > 1211 ALP- 499 > 402 >441. Total bilirubin is 17.2 with direct bilirubin of 8.7. PT/INR13.6/1.2. Right upper quadrant ultrasound done; cholelithiasis within abnormal appearing gallbladder with trace pericholecystic fluid. MRCP showed hydropic gallbladder with stone and pericholecystic fluid. No intra or extrahepatic biliary duct dilation. HIDA scan no definitive gallbladder uptake is seen. Excretion into the intestine was also not seen. During the hospitalization, patient was started on antibiotic(initially on zosyn, switched over to cefepime/Flagyl), IV fluids. Surgery was consulted given concern for cholecystitis. GI was consulted for transaminitis. General surgery evaluated the patient; recommended ERCP prior to laparoscopic c holecystectomy given the finding and the HIDA scan. General surgery also believe that patient has high risk of liver failure and recommended transfer to tertiary care center. Dr. Covarrubias from general surgery discussed with transfer center at [facility] [place] Patient was accepted by Dr. Dhara Cardenas. As per GI, the transaminitis is likely due to hepatitis, likely drug-induced. Patient was started on N-acetylcysteine on December 01, 2022. Patient was agreeable for transfer. Please note the above document was generated using voice recognition software. It may contain grammatical, syntax or spelling errors. Any formal questions or concerns about the content, text or information contained within the body of this dictation should be directly addressed to the provider for clarification Total Time Total Time Spent Total Time Spent (In Minutes): 56 Total Time Includes: Examination of the Patient, Discharge Planning, Medication Reconciliation, Communication With Other Providers and Other Discharge Plan Discharge Items Patient Disposition: Transfer Acute Care Hospital Reason For Visit: ACUTE VIRAL HEPATITIS Discharge Diagnosis: Acute cholecystitis Elevated liver enzymes Activity: Resume your previous activity Non-emergency contact: Primary Care Provider Call non-emergency contact if: you have any medication questions Follow-up/Referrals: Shahzad Melgar DO [Primary Care Provider] - Diet: Regular Addtl Attending Provider Instructions: The following medications are given during inpatient stay: Current Inpatient Medications Acetylcysteine 2,630 mg/ (Dextrose) 513.15 mls @ 125 mls/hr IV ONE ONE; Protocol Stop: 12/01/22 16:51 Acetylcysteine 5,260 mg/ (Dextrose) 1,026.3 mls @ 62.5 mls/hr IV ONE ONE; Protocol Stop: 12/02/22 09:25 Cefepime HCl 2,000 mg/ Syringe 20 mls @ 5 mls/min IV Q8H [facility]; Protocol Stop: 12/11/22 13:14 Metronidazole (Metronidazole 500 Mg Tab) 500 mg PO BID [facility]; Protocol Stop: 12/11/22 20:59 Miscellaneous (Remove Nicoderm Patch) 1 each N/A DAILY@0859 [facility] Stop: 12/31/22 08:58 Last Admin: 12/01/22 08:15 Dose: Not Given Nicotine (Nicotine 21 Mg/24 Hr Tdsy) 21 mg TD QAM [facility] Stop: 12/30/22 11:44 Last Admin: 12/01/22 08:16 Dose: Not Given Nicotine Polacrilex (Nicotine Polacrilex 2 Mg Gum) 1 piece MT Q2H PRN PRN Reason: nicotine withdrawal Stop: 12/30/22 11:38 Ondansetron HCl (Ondansetron Inj 2 Mg/Ml 2 Ml Vial) 4 mg IV Q6H PRN PRN Reason: Nausea Stop: 12/29/22 14:59 Pending Studies at Discharge: Yes Studies:: Hepatitis panel, CMV, EBV, parvovirus Stand-Alone Forms: My [facility] Skilled Items Patient informed of condition?: Yes DNR: No Discharge Level of Care: Other Communicable Disease: No Discharge Prognosis: Stable Lines: Peripheral IV Urinary Catheter: No Medications and DC Order Prescriptions: Continued buprenorphine HCl 8 mg tablet, sublingual 0 mg Sublingual TID Rx Instructions: Ptis supposed to take 8mg by mouth TID. However patient states that she takes 8mg by mouth every few days as needed lithium carbonate 300 mg Tablet Extended Release 300 mg PO BID Discharge Orders: Discharge Order (Routine); Ordered 12/01/22 Ordered By: Genaro Warren Admission Data Admit Date/Time: 11/29/22 15:01 Attending Provider: Genaro Warren Admit Provider: Krishan Morelos Primary Care Provider: Shahzad Melgar Other Providers: Ashia Goldberg ; Marvel Covarrubias ; Krishan Morelos ; Raquel Conner
[2022-12-01 19:53] LABS: HBSAG REACTIVE (NON-REACTIVE); Hepatitis A Antibody IgM NON-REACTIVE (NON-REACTIVE); Hepatitis B Core Antibody IgM REACTIVE (NON-REACTIVE)
[2022-12-01] MEDS ORDERED: metroNIDAZOLE 500 MG TAB PO SCH (21:00)
[2022-12-02 12:13] LABS: Hepatitis C Vira RNA (Log) PCR <1.18 NOT DETECTED Log IU/mL (NOT DETECTED); Hepatitis C Viral RNA by PCR <15 NOT DETECTED IU/mL (NOT DETECTED)
[2022-12-02 14:58] LABS: Epstein Barr Virus Early Ag Ab <9.00 U/mL
[2022-12-03 00:27] LABS: 7-Aminoclonazepam DNR ng/mL (<25); Alpha-Hydroxyalprazolam DNR ng/mL (<25); Alphahydroxymidazolam DNR ng/mL (<50); Alphahydroxytriazolam DNR ng/mL (<50); Amobarbital DNR ng/mL (<100); Amphetamines, Ur NEGATIVE ng/mL (<500); Amphetemines Ur GC/MS DNR ng/mL (<250); Barbiturates, Urine NEGATIVE ng/mL (<300); Benzodiazepines,Ur NEGATIVE ng/mL (<100); Butalbital DNR ng/mL (<100); Cocaine, Urine NEGATIVE ng/mL (<150); Cocaine,Ur GC/MS DNR ng/mL (<100); Codeine DNR ng/mL (<50); Confirmatory Facility DNR; EDDP DNR ng/mL (<100); Hydrocodone DNR ng/mL (<50); Hydromorphone DNR ng/mL (<50); Hydroxyethylflurazepam DNR ng/mL (<50); Lorazepam DNR ng/mL (<50); Methadone, Ur GC/MS NEGATIVE ng/mL (<100); Methadone, Urine DNR ng/mL (<100); Methamphetamine DNR ng/mL (<250); Morphine DNR ng/mL (<50); Norhydrocodone DNR ng/mL (<50); Noroxycodone DNR ng/mL (<50); Opiates, Urine NEGATIVE ng/mL (<100); Oxycodone,Ur Screen NEGATIVE ng/mL (<100); Pentobarbital DNR ng/mL (<100); Phencyclidine, Ur NEGATIVE ng/mL (<25); Phencyclidine,Ur GC/MS DNR ng/mL (<25); Secobarbital DNR ng/mL (<100); THC20, Qual, Urine POSITIVE ng/mL (<20); Temazepam DNR ng/mL (<50); Tetrahydrocannabinol 1719 ng/mL (<5)
[2022-12-08 07:37] LABS: CMV IgG Antibody >10.00 U/mL; CMV IgM Antibody <30.00 AU/mL; HSV Type 1 DNA Not Detected (Not Detected); HSV Type 1&2 DNA Source Whole Blood; HSV Type 2 DNA Not Detected (Not Detected); Parvovirus IgG 2.5 (<0.9); Parvovirus IgM 0.3 (<0.9)
== END 2022-12-01 16:46 | disposition short-term general hospital (02) | DRG 444 ==
LOC: ED 08:46 → SUATTDRO 15:01 → EDINP 15:01 → 3N 18:39